=== PATIENT | female | born 1980 | race Caucasian/White ===

== ENCOUNTER 2020-03-21 13:20 | Emergency (ER) | payer OTHER ==
--- NOTE | 2020-03-21 14:04 | RAD REPORT ---
EXAM DESCRIPTION: CT - Ct Stroke Brain Wo Cont - 03/21/2020 1:55 pm CLINICAL HISTORY: Numbness COMPARISON: none TECHNIQUE: Computed axial tomography of the head was obtained. All CT scans are performed using dose optimization technique as appropriate and may include automated exposure control or mA/KV adjustment according to patient size. FINDINGS: An intracranial bleed is not seen . The ventricles are normal in caliber. No extra-axial fluid collection is noted. Fluid within the sinuses/ mastoids is not seen. IMPRESSION: No acute intracranial abnormality is seen. If patient's symptoms persist MRI of the bra in would be recommended. Rafael Page of the emergency room was notified at 1:58 p.m. March 21, 2020
[2020-03-21 14:07] LABS: Basophils % 0.9 % (0-1.3); Hematocrit 36.7 % (36.0-45.0); Lymphocytes % 32.4 % (15.3-44.8); MPV 7.8 fL (7.6-11.3); RBC Red Blood Cell Count 4.12 M/uL (3.86-4.86)
[2020-03-21 14:14] LABS: Protime INR 1.07
[2020-03-21 14:26] LABS: ALT/SGPT 54 U/L (12-78); AST/SGOT 30 U/L (15-37); Albumin 3.1 g/dL (3.4-5.0); Alkaline Phosphatase 119 U/L (45-117); BUN Blood Urea Nitrogen 12 mg/dL (7-18); Bicarbonate 30 mmol/L (21-32); Bilirubin Direct 0.1 mg/dL (0-0.2); Bilirubin Total 0.3 mg/dL (0.2-1.0); Glucose Level 89 mg/dL (74-106); Magnesium 2.1 mg/dL (1.8-2.4); NT PRO-BNP 61 pg/mL (<125); Protein, Total 7.6 g/dL (6.4-8.2); Sodium Level 140 mmol/L (136-145); Troponin (Emerg Dept Use Only) < 0.02 ng/mL (0.0-0.045)
[2020-03-21] MEDS ORDERED: ASPIRIN 81 MG CHEWABLE TABLET ONE (15:45)
[2020-03-21] MEDS ORDERED: FENTANYL CITR 100 MCG/2 ML ONE ×3 (15:46→19:34)
[2020-03-21] MEDS ORDERED: FOLIC ACID 1 MG in NA CHLORIDE 0.9% 50 ML IV ONE (16:00)
[2020-03-21] MEDS ORDERED: LORazepam 2 MG/ML VIAL ONE (17:01)
--- NOTE | 2020-03-21 17:53 | RAD REPORT ---
EXAM DESCRIPTION: MRI - Brain Wo Cont - 03/21/2020 5:38 pm CLINICAL HISTORY: numbness COMPARISON: Head ct 03/21/2020 TECHNIQUE: Axial, sagittal, and coronal magnetic images of the brain were obtained. Contrast was not requested FINDINGS: Small area of abnormal signal deep white matter right fontal lobe may represent an old carlton y small infarct Diffusion-weighted/ADC mapping does not reveal evidence of acute infarction. The ventricles are normal caliber. An extra-axial fluid collection is not present Fluid within the sinuses/mastoids is not noted IMPRESSION: No acute abnormality is displayed
--- NOTE | 2020-03-21 18:37 | ER ---
Nurse's Notes [facility] Name: Lashon Martinez Age: 39 yrs Sex: Female : 1980 Arrival Date: 03/21/2020 Time: 13:21 Bed 4 Private MD: Diagnosis: Moss's palsy-left Presentation: 03/21 13:22 Chief complaint: EMS states: LEFT FACIAL NUMBNESS. Coronavirus screen: Proceed with bp normal triage. Ebola Screen: No symptoms or risks identified at this time. Initial Sepsis Screen: Does the patient meet any 2 criteria? HR > 90 bpm. No. Patient's initial sepsis screen is negative. Does the patient have a suspected source of infection? No. Patient's initial sepsis screen is negative. Risk Assessment: Do you want to hurt yourself or someone else? Patient reports no desire to harm self or others. Onset of symptoms was March 21, 2020 at 12:00. Care prior to arrival: Glucose check: 98. 13:22 Method Of Arrival: EMS: [facility] bp 13:22 Acuity: VINNIE 3 bp Triage Assessment: 13:30 General: Appears in no apparent distress. comfortable, obese, Behavior is cooperative, bp appropriate for age, anxious. Pain: Denies pain. EENT: No deficits noted. Neuro: Reports numbness in LEFT FACE. Cardiovascular: Rhythm is sinus tachycardia. Respiratory: No deficits noted. GI: No signs and/or symptoms were reported involving the gastrointestinal system. : No signs and/or symptoms were reported regarding the genitourinary system. Derm: No deficits noted. Musculoskeletal: No deficits noted. Historical: - Allergies: 13:29 Iodine; bp 13:29 Keflex; bp 13:29 SEAFOOD; bp - Home Meds: 13:29 bupropion HCl 150 mg Oral TbER 1 tab once daily [Active]; fluoxetine 40 mg Oral cap 2 bp caps once daily [Active]; levothyroxine 150 mcg tab 1 tab once daily [Active]; trazodone 150 mg oral tab 1 tab nightly [Active]; Pradaxa 150 mg oral cap 1 cap 2 times per day [Active]; baclofen 20 mg Oral tab 1 tab 4 times per day [Active]; hydromorphone 4 mg Oral tab 1 tab every 6 hours [Active]; - PMHx: 13:29 PARAPLEGIA; Obesity; MOOD D/O; Depression; GERD; bp - Immunization history:: Adult Immunizations up to date. - Social history:: Smoking status: Patient denies any tobacco usage or history of. Screenin:30 Abuse screen: Denies threats or abuse. Denies injuries from another. Nutritional bp screening: No deficits noted. Tuberculosis screening: No symptoms or risk factors identified. Fall Risk None identified. 15:40 Patient has been NPO before screening. The patient is alert, able to follow commands. rb1 The patient does not exhibit slurred or garbled speech The patient is not exhibiting difficulty speaking. The patient does not exhibit difficulty understanding words. The patient is able to swallow own secretions with no drooling or need for suction. Patient tolerated one teaspoon of water. No drooling, immediate coughing, gurgling, or clearing of the throat was noted. The patient tolerated 90mL of water. No drooling, immediate coughing, gurgling, or clearing of the throat was noted. The patient passed the bedside swallow screening. Oral medications may be given as ordered. Contact Physician for further diet orders. Provider notified of bedside swallow screening results: Rafael BURTON. Assessment: 13:30 General: SEE TRIAGE NOTE. bp 14:00 Reassessment: PT RETURNED FROM CT. bp 15:24 Reassessment: MRI PENDING. NO CHANGE IN PT NEURO STATUS. bp 15:46 Reassessment: DR SANCHEZ AT B/S. bp 17:00 Reassessment: PT IN MRI. bp 17:09 Reassessment: Patient is alert, oriented x 3, equal unlabored respirations, skin aa5 warm/dry/pink. Pt c/o pain and anxiety in MRI. Pt given Ativan and Fentanyl at MRI, accompanied by JOSEPHINE Chowdhury. . 17:45 Reassessment: PT RETURNED FROM MRI. bp 19:30 Reassessment: Patient appears in no apparent distress at this time. Patient is alert, rr5 oriented x 3, equal unlabored respirations, skin warm/dry/pink. complaining of left side of the face pain, pain score 10/10. ED provider aware with order made and carried out. awaiting for EMS [facility] for the transport. 20:05 Reassessment: Patient appears in no apparent distress at this time. Patient is alert, rr5 oriented x 3, equal unlabored respirations, skin warm/dry/pink. endorsed to [facility] EMS awake alert not in distress. GCS 15/15. vitally stable. Vital Signs: 13:22 BP 140 / 80; Pulse 100; Resp 20; Temp 98; Pulse Ox 99% ; bp 14:00 BP 144 / 89; Pulse 104; Resp 23; Pulse Ox 99% ; bp 15:22 BP 138 / 90; Pulse 105; Resp 17; Pulse Ox 100% ; bp 16:30 BP 135 / 76; Pulse 105; Resp 15; Pulse Ox 97% ; bp 17:46 BP 140 / 96; Pulse 100; Resp 17; Pulse Ox 100% ; bp 19:30 BP 136 / 75; Pulse 85; Resp 19; Pulse Ox 99% ; Pain 10/10; rr5 20:05 BP 126 / 85; Pulse 92; Resp 17; Pulse Ox 98% ; rr5 NIH Stroke Scale Scores: 13:45 NIHSS Score: 3 cp ED Course: 13:21 Patient arrived in ED. bp 13:23 Triage completed. bp 13:29 Arm band placed on. bp 13:30 Patient has correct armband on for positive identification. Bed in low position. Call bp light in reach. Side rails up X2. Adult w/ patient. 13:38 Rafael Zepeda PA is PHCP. cp 13:38 Benton Mortensen MD is Attending Physician. cp 13:42 Fabrizio Nath, KIKE is Primary Nurse. bp 13:55 CT Stroke Brain w/o Contrast In Process Unspecified. EDMS 14:40 EKG done, by proof technician. reviewed by Rafael BURTON. at1 15:33 Inserted saline lock: 20 gauge in left antecubital area, using aseptic technique. em1 17:38 MRI - Brain Wo Cont In Process Unspecified. EDMS 18:35 John Moncada MD is Referral Physician. cp 20:11 No provider procedures requiring assistance completed. IV discontinued, intact, rr5 bleeding controlled, No redness/swelling at site. Pressure dressing applied. Administered Medications: 15:10 Drug: foLIC Acid 1 mg Route: IVPB; Site: left antecubital; bp 15:43 Drug: Aspirin 81 mg Route: PO; rb1 16:09 Follow up: Response: No adverse reaction bp 15:43 Drug: fentaNYL (PF) 25 mcg Route: IVP; Site: left antecubital; rb1 16:10 Follow up: Response: Pain is decreased bp 16:22 Follow up: Response: No adverse reaction; Pain is decreased rb1 17:09 Drug: Ativan 0.5 mg Route: IVP; Site: left antecubital; aa5 17:09 Drug: fentaNYL (PF) 25 mcg Route: IVP; Site: left antecubital; aa5 19:51 Drug: fentaNYL (PF) 25 mcg {Note: rass 0..} Route: IVP; Site: left antecubital; rr5 20:05 Follow up: Response: No adverse reaction; RASS: Alert and Calm (0) rr5 Outcome: 18:36 Discharge ordered by MD. cp 20:05 [facility] 20:05 Condition: stable rr5 20:05 Discharge instructions given to patient, Instructed on discharge instructions, follow up and referral plans. medication usage, Demonstrated understanding of instructions, follow-up care, medications, Prescriptions given X 3. 20:08 Patient left the ED. rr5 NIH Stroke Scale - NIH Stroke Score Date: 03/21/2020 Time: 13:45 Total Score = 3 1a. Level of Consciousness (LOC) - 0(Alert) 1b. Level of Consciousness (LOC) (Year \T\ Age) - 0(Both) 1c. LOC Commands (Open \T\ Closes Eyes/Electric Stove Installer) - 0(Both) 2. Best Gaze (Lateral Gaze Paresis) - 0(Normal) 3. Visual Field Loss - 0(No visual loss) 4. Facial Palsy - 2(Partial paralysis) 5a. Left Arm: Motor (10-second hold) - 0(No drift) 5b. Right Arm: Motor (10-second hold) - 0(No drift) 6a. Left Leg: Motor (5-second hold - always test supine) - 0(No drift) 6b. Right Leg: Motor (5-second hold - always test supine) - 0(No drift) 7. Limb Ataxia (finger/nose \T\ heel/mejia - test with eyes open) - 0(Absent) 8. Sensory Loss (pinprick arms/legs/face) - 1(Mild to moderate loss) 9. Best Language: Aphasia (description/naming/reading) - 0(No aphasia) 10. Dysarthria (speech clarity - read or repeat words) - 0(Normal) 11. Extinction and Inattention (visual/tactile/auditory/spatial/personal) - 0(No abnormality) Initials: cp Signatures: Dispatcher [employer] Terry Randolph em1 Sylvia Tejada, RN RN aa5 Yesika Elam, speeder worker EKG Tat1 Rafael Zepeda PA PA cp Barber, Rebecca, RN RN rb1 Farbizio Nath RN RN bp Porfirio Perry RN RN rr5
--- NOTE | 2020-03-21 18:37 | EDPHYS ---
Physician Documentation [facility] Name: Lashon Martinez Age: 39 yrs Sex: Female : 1980 Arrival Date: 03/21/2020 Time: 13:21 Bed 4 Private MD: ED Physician Benton Mortensen HPI: 03/21 13:45 This 39 yrs old Female presents to ER via EMS with complaints of Numbness Of cp Face. 13:45 The patient's problem is reported as a facial droop, on left, paresthesias, in left cp side of face. 13:45 Onset: The symptoms/episode began/occurred this morning, Patient reports noticing cp numbness to left side of face upon awakening at approximately 0700. Duration: The episode is continuous. Context: symptoms became apparent upon waking. Associated signs and symptoms: Pertinent negatives: abdominal pain, blurred vision, chest pain, confusion, headache, palpitations, seizure, weakness. Severity of symptoms: in the emergency department the symptoms are unchanged. Patient's baseline: Neuro: alert and fully oriented, Motor: lower extremity paraplegic, Ambulation: unable to walk, Speech: normal. Historical: - Allergies: 13:29 Iodine; bp 13:29 Keflex; bp 13:29 SEAFOOD; bp - Home Meds: 13:29 bupropion HCl 150 mg Oral TbER 1 tab once daily [Active]; fluoxetine 40 mg Oral cap 2 bp caps once daily [Active]; levothyroxine 150 mcg tab 1 tab once daily [Active]; trazodone 150 mg oral tab 1 tab nightly [Active]; Pradaxa 150 mg oral cap 1 cap 2 times per day [Active]; baclofen 20 mg Oral tab 1 tab 4 times per day [Active]; hydromorphone 4 mg Oral tab 1 tab every 6 hours [Active]; - PMHx: 13:29 PARAPLEGIA; Obesity; MOOD D/O; Depression; GERD; bp - Immunization history:: Adult Immunizations up to date. - Social history:: Smoking status: Patient denies any tobacco usage or history of. ROS: 13:50 Constitutional: Negative for body aches, chills, fever, poor PO intake. cp 13:50 Eyes: Negative for injury, pain, redness, and discharge. cp 13:50 ENT: Negative for ear pain, sore throat, difficulty swallowing, difficulty handling cp secretions. 13:50 Cardiovascular: Negative for chest pain, palpitations. 13:50 Respiratory: Negative for cough, shortness of breath, wheezing. 13:50 Abdomen/GI: Negative for abdominal pain, nausea, vomiting, and diarrhea. 13:50 Skin: Negative for rash. 13:50 Neuro: Positive for left side facial droop and numbness, Negative for altered mental status, dizziness, headache. 13:50 All other systems are negative. Exam: 13:48 Constitutional: The patient appears in no acute distress, alert, awake, cp non-diaphoretic, non-toxic, well developed, well nourished, obese. 13:48 Head/face: Noted is left side facial droop. cp 13:48 Eyes: Periorbital structures: appear normal, Pupils: equal, round, and reactive to light and accomodation, Extraocular movements: intact throughout, Conjunctiva: normal, no exudate, no injection, Sclera: no appreciated abnormality, Lids and lashes: appear normal, bilaterally. 13:48 ENT: External ear(s): are unremarkable, Nose: is normal, Mouth: Lips: moist, Oral mucosa: pink and intact, moist, Posterior pharynx: is normal, airway is patent, no erythema, no exudate. 13:48 Neck: ROM/movement: is normal, is supple, without pain, no range of motions limitations, no nuchal rigidity. 13:48 Chest/axilla: Inspection: normal. 13:48 Cardiovascular: Rate: normal, Rhythm: regular. 13:48 Respiratory: the patient does not display signs of respiratory distress, Respirations: normal, no use of accessory muscles, no retractions, labored breathing, is not present, Breath sounds: are clear throughout, no decreased breath sounds. 13:48 Abdomen/GI: Exam negative for discomfort, distension, guarding, Inspection: abdomen appears normal. 13:48 Skin: no rash present. 13:48 Neuro: Orientation: to person, place \T\ time. Mentation: is normal, Cerebellar function: Romberg testing is negative, normal finger to nose testing, Motor: no acute changes, strength is 5/5 in the right arm and left arm, patient is lower extremity paraplegic, Sensation: numbness, of the left lateral face. 14:00 Radiologist reports: no acute findings 14:40 ECG was reviewed by the Attending Physician. Vital Signs: 13:22 BP 140 / 80; Pulse 100; Resp 20; Temp 98; Pulse Ox 99% ; bp 14:00 BP 144 / 89; Pulse 104; Resp 23; Pulse Ox 99% ; bp 15:22 BP 138 / 90; Pulse 105; Resp 17; Pulse Ox 100% ; bp 16:30 BP 135 / 76; Pulse 105; Resp 15; Pulse Ox 97% ; bp 17:46 BP 140 / 96; Pulse 100; Resp 17; Pulse Ox 100% ; bp 19:30 BP 136 / 75; Pulse 85; Resp 19; Pulse Ox 99% ; Pain 10/10; rr5 20:05 BP 126 / 85; Pulse 92; Resp 17; Pulse Ox 98% ; rr5 NIH Stroke Scale Scores: 13:45 NIHSS Score: 3 cp MDM: 13:41 ED course: Patient reports noticing numbness of left side of face upon awakening today cp at 0700. 13:48 Patient medically screened. 14:00 Differential diagnosis: CVA, TIA, metabolic disorder, drug effects, moss's palsy. 14:55 Physician consultation: John Moncada MD was called at 14:45, was contacted at 14:45, regarding consult, patient's condition, would like further tests performed, MRI. 15:00 Physician consultation: Angel ANTOINE was contacted at 15:00, regarding admission, cp to the telemetry unit. would like further tests performed, results of MRI, if negative for acute CVA will discharge with outpatient neuro f/u. 18:30 Data reviewed: vital signs, nurses notes, lab test result(s), EKG, radiologic studies, cp CT scan, MRI. 18:30 Test interpretation: by ED physician or midlevel provider: ECG. Response to treatment: the patient's symptoms have mildly improved after treatment. 03/21 13:40 Order name: Basic Metabolic Panel; Complete Time: 14:43 03/21 18:15 Interpretation: CA 8.4; Reviewed. 03/21 13:40 Order name: CBC with Diff; Complete Time: 14:12 03/21 18:14 Interpretation: WBC 15.4; PLT 511; RDW 17.2; NEUT A 8.9; LYMA 5.0; Reviewed. 03/21 13:40 Order name: LFT's; Complete Time: 14:43 cp /18 14:43 Interpretation: Normal except: ALK 119; ALB 3.1; GLOB 4.5; A/G 0.7. cp 06/18 13:40 Order name: Magnesium; Complete Time: 14:43 cp /18 13:40 Order name: NT PRO-BNP; Complete Time: 14:43 cp /18 13:40 Order name: PT-INR; Complete Time: 14:43 cp /18 18:15 Interpretation: Normal except: PT 12.6. cp 06/18 13:40 Order name: CT Stroke Brain w/o Contrast; Complete Time: 14:12 cp / 13:40 Order name: Troponin (emerg Dept Use Only); Complete Time: 14:43 cp /18 18:16 Interpretation: TROPED < 0.02; Reviewed. / 16:06 Order name: MRI - Brain Wo Cont; Complete Time: 18:10 03/21 13:40 Order name: EKG; Complete Time: 13:41 cp 03/21 13:40 Order name: Cardiac monitoring; Complete Time: 14:00 cp /18 13:40 Order name: EKG - Nurse/Tech; Complete Time: 14:00 03/21 13:40 Order name: IV Saline Lock; Complete Time: 15:33 cp /18 13:40 Order name: Labs collected and sent; Complete Time: 14:00 /18 13:40 Order name: O2 Per Protocol; Complete Time: 14:00 / 13:40 Order name: O2 Sat Monitoring; Complete Time: 14:00 /18 14:46 Order name: Swallow Screen; Complete Time: 15:45 cp EC:40 Rate is 99 beats/min. Rhythm is regular. GA interval is normal. QRS interval is normal. cp QT interval is normal. T waves are Flattened in lead aVL. Interpreted by me. Reviewed by me. Administered Medications: 15:10 Drug: foLIC Acid 1 mg Route: IVPB; Site: left antecubital; bp 15:43 Drug: Aspirin 81 mg Route: PO; rb1 16:09 Follow up: Response: No adverse reaction bp 15:43 Drug: fentaNYL (PF) 25 mcg Route: IVP; Site: left antecubital; rb1 16:10 Follow up: Response: Pain is decreased bp 16:22 Follow up: Response: No adverse reaction; Pain is decreased rb1 17:09 Drug: Ativan 0.5 mg Route: IVP; Site: left antecubital; aa5 17:09 Drug: fentaNYL (PF) 25 mcg Route: IVP; Site: left antecubital; aa5 19:51 Drug: fentaNYL (PF) 25 mcg {Note: rass 0..} Route: IVP; Site: left antecubital; rr5 20:05 Follow up: Response: No adverse reaction; RASS: Alert and Calm (0) rr5 Disposition: 18:45 Chart complete. cp 03/22 14:53 Co-signature as Attending Physician, Benton Mortensen MD I agree with the assessment and kdr plan of care. Disposition: 03/21/20 18:36 Discharged to Home. Impression: Moss's palsy - left. - Condition is Stable. - Discharge Instructions: Moss Palsy, Adult, Aspirin and Your Heart. - Prescriptions for Prednisone 20 mg Oral Tablet - take 2 tablet by ORAL route once daily for 5 days; 10 tablet. Valtrex 1 g Oral Tablet - take 1 tablet by ORAL route every 8 hours for 7 days; 21 tablet. lacrilube - apply 0.5 inch by OPHTHALMIC route 3-4 times daily As needed; 7 gram. - Medication Reconciliation Form, Thank You Letter, Antibiotic Education, Prescription Opioid Use, SBAR form form. - Follow up: John Moncada MD; When: 2 - 3 days; Reason: Recheck today's complaints. - Problem is new. - Symptoms are unchanged. NIH Stroke Scale - NIH Stroke Score Date: 03/21/2020 Time: 13:45 Total Score = 3 1a. Level of Consciousness (LOC) - 0(Alert) 1b. Level of Consciousness (LOC) (Year \T\ Age) - 0(Both) 1c. LOC Commands (Open \T\ Closes Eyes/Materials Buyer) - 0(Both) 2. Best Gaze (Lateral Gaze Paresis) - 0(Normal) 3. Visual Field Loss - 0(No visual loss) 4. Facial Palsy - 2(Partial paralysis) 5a. Left Arm: Motor (10-second hold) - 0(No drift) 5b. Right Arm: Motor (10-second hold) - 0(No drift) 6a. Left Leg: Motor (5-second hold - always test supine) - 0(No drift) 6b. Right Leg: Motor (5-second hold - always test supine) - 0(No drift) 7. Limb Ataxia (finger/nose \T\ heel/mejia - test with eyes open) - 0(Absent) 8. Sensory Loss (pinprick arms/legs/face) - 1(Mild to moderate loss) 9. Best Language: Aphasia (description/naming/reading) - 0(No aphasia) 10. Dysarthria (speech clarity - read or repeat words) - 0(Normal) 11. Extinction and Inattention (visual/tactile/auditory/spatial/personal) - 0(No abnormality) Initials: cp Signatures: Dispatcher [employer] EDMS Benton Mortensen MD MD kdr Sylvia Tejada RN RN aa5 Rafael Zepeda PA PA cp Rebecca Denise RN RN rb1 Fabrizio Nath RN RN bp Porfirio Perry RN RN rr5 Corrections: (The following items were deleted from the chart) 03/21 18:14 14:12 Reviewed. cp cp 18:15 18:14 Reviewed. cp cp 20:08 18:36 03/21/2020 18:36 Discharged to Home. Impression: Moss's palsy - left. rr5 Condition is Stable. Forms are Medication Reconciliation Form, Thank You Letter, Antibiotic Education, Prescription Opioid Use. Follow up: John Moncada; When: 2 - 3 days; Reason: Recheck today's complaints. Problem is new. Symptoms are unchanged. cp
[2020-03-21 20:13] VITALS: TEMP 98
[2020-03-21 20:18] VITALS: BP 140/96; O2SAT 100
--- NOTE | 2020-03-22 06:39 | EKG ---
Test Date: 2020-03-21 Test Time: 14:31:04 Accounting Lecturer: MOMO MEASUREMENT RESULTS: Intervals: Rate: 99 DE: 142 QRSD: 100 QT: 378 QTc: 485 [place]: P: 48 DE: 142 QRS: 33 T: 50 INTERPRETIVE STATEMENTS: Normal sinus rhythm Incomplete right bundle branch block Prolonged QT Abnormal ECG Compared to ECG 01/30/2015 23:04:21 Incomplete right bundle-branch block now present Prolonged QT interval now present Electronically Signed On 03-22-20 06:37:38 CDT by Eren Leblanc
== END 2020-03-21 20:08 | disposition home or self-care (01) ==
LOC: ER 13:20
DX: G51.0 Bell's palsy (principal); F32.9 Major depressive disorder, single episode, unspecified; Z88.1 Allergy status to other antibiotic agents; Z91.013 Allergy to seafood
CPT/HCPCS: 93005; 85025; 80048; 36415; 83735; 85610; 80076; 84484; 83880; 70450; 70551; 96375; 96374; 99284; J3010 ×3

== ENCOUNTER 2020-12-23 11:34 | Inpatient (IN) | payer OTHER ==
[2020-12-23 12:53] LABS: Absolute Lymphocytes (CBC) 5.2 K/uL (0.7-4.9); Basophils % 0.9 % (0-1.3); Hematocrit 23.1 % (36.0-45.0); Lymphocytes % 33.1 % (15.3-44.8); MPV 7.5 fL (7.6-11.3); RBC Red Blood Cell Count 2.95 M/uL (3.86-4.86)
[2020-12-23 13:13] LABS: Protime INR 1.32
[2020-12-23 13:27] LABS: ALT/SGPT 23 U/L (12-78); AST/SGOT 11 U/L (15-37); Albumin 3.1 g/dL (3.4-5.0); Alkaline Phosphatase 86 U/L (45-117); BUN Blood Urea Nitrogen 14 mg/dL (7-18); Bicarbonate 28 mmol/L (21-32); Bilirubin Direct < 0.1 mg/dL (0-0.2); Bilirubin Total 0.2 mg/dL (0.2-1.0); Glucose Level 96 mg/dL (74-106); Lipase 38 U/L (73-393); Potassium 4.3 mmol/L (3.5-5.1); Protein, Total 7.4 g/dL (6.4-8.2); Sodium Level 142 mmol/L (136-145)
--- NOTE | 2020-12-23 13:27 | ER ---
Nurse's Notes [facility] Name: Lashon Martinez Age: 40 yrs Sex: Female : 1980 Arrival Date: 12/23/2020 Time: 11:37 Bed 16 Private MD: Diagnosis: Anemia, unspecified;Gatrointestinal bleed Presentation: 12/23 11:41 Chief complaint: EMS states: Toned out for abnormal lab results, low hgb and hct. jl7 Coronavirus screen: Client denies travel out of the [place] in the last 14 days. At this time, the client does not indicate any symptoms associated with coronavirus-19. Ebola Screen: No symptoms or risks identified at this time. Initial Sepsis Screen: Does the patient meet any 2 criteria? No. Patient's initial sepsis screen is negative. Does the patient have a suspected source of infection? No. Patient's initial sepsis screen is negative. Risk Assessment: Do you want to hurt yourself or someone else? Patient reports no desire to harm self or others. Onset of symptoms is unknown. Care prior to arrival: None. Transition of care: patient was received from another setting of care (long-term care facility), [facility]. 11:41 Method Of Arrival: EMS: [facility] jl7 11:41 Acuity: VINNIE 3 jl7 Triage Assessment: 11:51 General: Appears in no apparent distress. Behavior is calm, cooperative, appropriate jl7 for age. Pain: Denies pain. Neuro: Level of Consciousness is awake, alert, obeys commands, Oriented to person, place, time, situation. Cardiovascular: Patient's skin is warm and dry. Respiratory: Airway is patent Respiratory effort is even, unlabored, Respiratory pattern is regular, symmetrical. GI: Reports dark stool. Derm: Skin is pink, warm \T\ dry. DIRECTOR OF ENTERPRISE APPLICATIONS: 11:51 LMP N/A - control method jl7 Historical: - Allergies: 11:51 Iodine; jl7 11:51 Keflex; jl7 11:51 SEAFOOD; jl7 - Home Meds: 11:51 trazodone 150 mg Oral tab 1 tab nightly [Active]; levothyroxine 150 mcg tab 1 tab once jl7 daily [Active]; baclofen 20 mg Oral tab 1 tab 4 times per day [Active]; bupropion HCl 150 mg Oral TbER 1 tab once daily [Active]; hydromorphone 4 mg Oral tab 1 tab every 6 hours [Active]; Eliquis 5 mg oral tab 1 tab 2 times per day [Active]; fluoxetine 40 mg Oral cap 2 caps once daily [Active]; Pradaxa 150 mg Oral cap 1 cap 2 times per day [Active]; - PMHx: 11:51 Depression; GERD; MOOD D/O; Obesity; Paraplegia; jl7 - Immunization history:: Adult Immunizations up to date. - Social history:: Smoking status: unknown. - Family history:: not pertinent. - Hospitalizations: : No recent hospitalization is reported. Screenin:14 Abuse screen: Denies threats or abuse. Denies injuries from another. Nutritional jl screening: No deficits noted. Tuberculosis screening: No symptoms or risk factors identified. Fall Risk IV access (20 points). Assessment: 12:14 General: see triage assessment. jl7 13:00 Reassessment: Patient appears in no apparent distress at this time. No changes from jl7 previously documented assessment. Patient and/or family updated on plan of care and expected duration. Pain level reassessed. Patient is alert, oriented x 3, equal unlabored respirations, skin warm/dry/pink. 14:35 Reassessment: Hospitalist Dr. Bryant at bedside assessing pt and discussing POC. jl7 15:00 Reassessment: Patient appears in no apparent distress at this time. No changes from jl7 previously documented assessment. Patient and/or family updated on plan of care and expected duration. Pain level reassessed. Patient is alert, oriented x 3, equal unlabored respirations, skin warm/dry/pink. 16:00 Reassessment: Patient appears in no apparent distress at this time. No changes from jl7 previously documented assessment. Patient and/or family updated on plan of care and expected duration. Pain level reassessed. Patient is alert, oriented x 3, equal unlabored respirations, skin warm/dry/pink. 17:00 Reassessment: Patient appears in no apparent distress at this time. No changes from jl7 previously documented assessment. Patient and/or family updated on plan of care and expected duration. Pain level reassessed. Patient is alert, oriented x 3, equal unlabored respirations, skin warm/dry/pink. 17:30 Reassessment: Attempted to call report, nurse unavailable. jl7 18:01 Reassessment: Attempted to call report, nurse unavailable. jl7 Vital Signs: 11:41 BP 134 / 77; Pulse 103; Resp 15 S; Temp 98.6(O); Pulse Ox 98% on R/A; Pain 0/10; jl7 12:42 BP 140 / 80; Pulse 103; Resp 17; Pulse Ox 98% ; jl7 14:35 BP 160 / 87; Pulse 98; Resp 17; Pulse Ox 99% ; jl7 16:00 BP 130 / 91; Pulse 98; Resp 17; Pulse Ox 100% ; jl7 17:00 BP 148 / 99; Pulse 99; Resp 15; Pulse Ox 100% ; jl7 18:00 BP 131 / 95; Pulse 102; Resp 17; Pulse Ox 100% ; jl7 ED Course: 11:37 Patient arrived in ED. iw 11:38 Torsten Bryant MD is Attending Physician. rn 11:41 Juanjose Babb RN is Primary Nurse. jl7 11:47 Triage completed. jl7 11:51 Arm band placed on right wrist. 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 jl7 12:14 Patient has correct armband on for positive identification. Placed in gown. Bed in low jl7 position. Call light in reach. Side rails up X2. Pulse ox on. NIBP on. 12:52 Initial lab(s) drawn, by ma, sent to lab. Inserted saline lock: 20 gauge in left sr5 antecubital area, using aseptic technique. Blood collected. Missed attempt(s): 20 gauge in left forearm. 13:26 Porfirio Bryant MD is Hospitalizing Provider. rn 14:21 CT Abd/Pelvis - Without Contrast In Process Unspecified. EDMS 14:45 Missed attempt(s): 20 gauge in right forearm. Bleeding controlled, band aid applied, jl7 catheter tip intact. 15:00 Inserted saline lock: 22 gauge in right upper arm, using aseptic technique. Blood jl7 collected. 16:44 Inserted saline lock: 22 gauge in left forearm, using aseptic technique. jl7 18:00 Patient admitted, IV remains in place. intact, No redness/swelling at site. jl7 Administered Medications: 13:15 Drug: ProTONIX 40 mg Route: IVP; Site: left antecubital; jl7 15:08 Follow up: Response: No adverse reaction jl7 14:25 Drug: Phenergan 12.5 mg Route: IVP; Site: left antecubital; jl7 15:00 Follow up: Response: No adverse reaction; Nausea is decreased jl7 14:30 Drug: morphine 4 mg Route: IVP; Site: left antecubital; jl7 15:00 Follow up: Response: No adverse reaction; Pain is decreased jl7 15:00 Drug: ProTONIX 8 mg/hr Route: IV; Rate: 25 ml/hr; Site: left antecubital; jl7 15:09 Follow up: Response: No adverse reaction; IV Status: Infusion continued upon admission jl7 16:44 Follow up: location moved to left FA due to pt unable to keep arm straight jl7 Point of Care Testing: Guaiac: 11:54 Stool Guaiac: Positive; Stool Hemoccult Control: Pass; broomcorn seeder: Outcome: 13:27 Decision to Hospitalize by Provider. rn 18:30 Admitted to Tele accompanied by tech, via stretcher, room 220, with chart, Report nathaniel called to KIKE Simmons 18:30 Condition: stable 18:30 Discharge instructions given to patient, Instructed on the need for admit, Demonstrated understanding of instructions. 18:31 Patient left the ED. jl7 Signatures: Dispatcher [employer] Rosy Flores RN RN iw Nieto, Roman, MD MD rn Resecker, Sam, RN RN sr5 Juanjose Babb RN RN jl7
--- NOTE | 2020-12-23 13:27 | EDPHYS ---
Physician Documentation [facility] Name: Lashon Martinez Age: 40 yrs Sex: Female : 1980 Arrival Date: 12/23/2020 Time: 11:37 Bed 16 Private MD: ED Physician Torsten Bryant HPI: 12/23 11:39 This 40 yrs old Female presents to ER via Unassigned with complaints of needs rn repeat bloodwork. 11:39 Reports had regularly scheduled blood draw this week, showed low hemoglobin, has never rn had a problem with anemia or GI bleeding, halfway unable to successfully get repeat blooddraw, sent her here for re-draw. Pt denies any new symptoms, no sob/fatigue/chest pain. Does take blood thinners for chronic DVT. . Onset: The symptoms/episode began/occurred at an unknown time. Severity of symptoms: At their worst the symptoms were mild in the emergency department the symptoms are unchanged. The patient has not experienced similar symptoms in the past. The patient has been recently seen by a physician:. SLIP DUMPER: 11:51 LMP N/A - control method jl Historical: - Allergies: 11:51 Iodine; jl 11:51 Keflex; 11:51 SEAFOOD; jl7 - Home Meds: 11:51 trazodone 150 mg Oral tab 1 tab nightly [Active]; levothyroxine 150 mcg tab 1 tab once jl7 daily [Active]; baclofen 20 mg Oral tab 1 tab 4 times per day [Active]; bupropion HCl 150 mg Oral TbER 1 tab once daily [Active]; hydromorphone 4 mg Oral tab 1 tab every 6 hours [Active]; Eliquis 5 mg oral tab 1 tab 2 times per day [Active]; fluoxetine 40 mg Oral cap 2 caps once daily [Active]; Pradaxa 150 mg Oral cap 1 cap 2 times per day [Active]; - PMHx: 11:51 Depression; GERD; MOOD D/O; Obesity; Paraplegia; jl7 - Immunization history:: Adult Immunizations up to date. - Social history:: Smoking status: unknown. - Family history:: not pertinent. - Hospitalizations: : No recent hospitalization is reported. ROS: 11:39 Constitutional: Negative for fever, chills, and weight loss, Eyes: Negative for injury, rn pain, redness, and discharge, Neck: Negative for injury, pain, and swelling, Cardiovascular: Negative for chest pain, palpitations, and edema, Respiratory: Negative for shortness of breath, cough, wheezing, and pleuritic chest pain, Abdomen/GI: Negative for abdominal pain, nausea, vomiting, diarrhea, and constipation, Back: Negative for injury and pain, : Negative for injury, bleeding, discharge, and swelling, MS/Extremity: Negative for injury and deformity, Skin: Negative for injury, rash, and discoloration, Neuro: Negative for headache, numbness, tingling, and seizure. Exam: 11:39 Constitutional: This is a well developed, well nourished patient who is awake, alert, rn and in no acute distress. Head/Face: Normocephalic, atraumatic. Eyes: Periorbital areas with no swelling, redness, or edema. ENT: MMM Cardiovascular: Regular rate and rhythm. No pulse deficits. Respiratory: No increased work of breathing, no retractions or nasal flaring. Abdomen/GI: soft, non-tender Skin: Warm, dry MS/ Extremity: Pulses equal, no cyanosis. Neuro: Awake and alert, GCS 15, oriented to person, place, time, and situation. + bilateral lower ext paralysis. Vital Signs: 11:41 BP 134 / 77; Pulse 103; Resp 15 S; Temp 98.6(O); Pulse Ox 98% on R/A; Pain 0/10; jl7 12:42 BP 140 / 80; Pulse 103; Resp 17; Pulse Ox 98% ; jl7 14:35 BP 160 / 87; Pulse 98; Resp 17; Pulse Ox 99% ; jl7 16:00 BP 130 / 91; Pulse 98; Resp 17; Pulse Ox 100% ; jl7 17:00 BP 148 / 99; Pulse 99; Resp 15; Pulse Ox 100% ; jl7 18:00 BP 131 / 95; Pulse 102; Resp 17; Pulse Ox 100% ; jl7 MDM: 11:39 Patient medically screened. rn 13:09 Differential Diagnosis anemia, gastric ulcer, GI bleed. . rn 13:10 Data reviewed: vital signs, nurses notes, lab test result(s), and as a result, I will architect internship patient. Counseling: I had a detailed discussion with the patient and/or guardian regarding: the historical points, exam findings, and any diagnostic results supporting the discharge/admit diagnosis, lab results, the need for further work-up and treatment in the hospital. Admission orders: after a detailed discussion of the patient's condition and case, the admit orders are written by me. ED course: Pt with hemoglobin 6.9, hemoccult +, will admit to Dr. Bryant for further care, started on protonix drip.. 12/23 11:39 Order name: CBC with Diff; Complete Time: 13:08 rn 12/23 11:53 Order name: Basic Metabolic Panel; Complete Time: 14:44 rn 12/23 11:53 Order name: Protime (+inr); Complete Time: 14:44 rn 12/23 11:53 Order name: Ptt, Activated; Complete Time: 14:44 rn 12/23 11:53 Order name: LFT's; Complete Time: 14:44 rn 12/23 11:53 Order name: Lipase; Complete Time: 14:44 rn 12/23 11:53 Order name: Type And Screen 12/23 11:53 Order name: Lactate; Complete Time: 13:08 rn 12/23 13:12 Order name: TRANSFERRIN SAT/IRON BINDING; Complete Time: 16:09 12/23 13:12 Order name: Iron Level; Complete Time: 16:09 12/23 13:12 Order name: B12; Complete Time: 16:09 12/23 13:34 Order name: Bb Add On bd 12/23 13:36 Order name: Packed RBC Leukored [facility] 12/23 11:53 Order name: IV Start; Complete Time: 12:33 rn 12/23 13:10 Order name: CT Abd/Pelvis - Without Contrast; Complete Time: 14:44 12/23 14:46 Order name: CONS Physician Consult [facility] 12/23 14:50 Order name: C-Reactive Protein; Complete Time: 16:09 [facility]OH 12/23 14:50 Order name: Procalcitonin; Complete Time: 16:09 [facility]OH 12/23 15:40 Order name: SARS-COV-2 RT PCR; Complete Time: 16:09 EDOH Administered Medications: 13:15 Drug: ProTONIX 40 mg Route: IVP; Site: left antecubital; jl7 15:08 Follow up: Response: No adverse reaction jl7 14:25 Drug: Phenergan 12.5 mg Route: IVP; Site: left antecubital; jl7 15:00 Follow up: Response: No adverse reaction; Nausea is decreased jl7 14:30 Drug: morphine 4 mg Route: IVP; Site: left antecubital; jl7 15:00 Follow up: Response: No adverse reaction; Pain is decreased jl7 15:00 Drug: ProTONIX 8 mg/hr Route: IV; Rate: 25 ml/hr; Site: left antecubital; jl7 15:09 Follow up: Response: No adverse reaction; IV Status: Infusion continued upon admission jl7 16:44 Follow up: location moved to left FA due to pt unable to keep arm straight jl7 Point of Care Testing: Guaiac: 11:54 Stool Guaiac: Positive; Stool Hemoccult Control: Pass; rn Disposition: 12/23/20 13:27 Hospitalization ordered by Porfirio Bryant for Inpatient Admission. Preliminary diagnosis are Anemia, unspecified, Gatrointestinal bleed. - Bed requested for Telemetry/MedSurg (Inpatient). - Status is Inpatient Admission. jl7 - Condition is Stable. - Problem is new. - Symptoms are unchanged. Signatures: Dispatcher [employer] EDMS Shari Jade Roman, MD MD rn Smirch, Shelby, RN RN ss Leal, Jahala, RN RN jl7 Corrections: (The following items were deleted from the chart) 11:42 11:39 Constitutional: Negative for fever, chills, and weight loss, Eyes: Negative for rn injury, pain, redness, and discharge, Neck: Negative for injury, pain, and swelling, Cardiovascular: Negative for chest pain, palpitations, and edema, Respiratory: Negative for shortness of breath, cough, wheezing, and pleuritic chest pain, Abdomen/GI: Negative for abdominal pain, nausea, vomiting, diarrhea, and constipation, Back: Negative for injury and pain, : Negative for injury, bleeding, discharge, and swelling, MS/Extremity: Negative for injury and deformity, Skin: Negative for injury, rash, and discoloration, Neuro: Negative for headache, weakness, numbness, tingling, and seizure, rn 13:12 13:12 FERRITIN+C.LAB.BRZ ordered. EDMS EDMS 14:52 14:07 CORONAVIRUS+MR.LAB.BRZ ordered. EDMS EDMS 16:52 13:27 Hospitalization Ordered by Porfirio Bryant MD for Inpatient Admission. Preliminary ss diagnosis is Anemia, unspecified; Gatrointestinal bleed. Bed requested for Telemetry/MedSurg (Inpatient). Status is Inpatient Admission. Condition is Stable. Problem is new. Symptoms are unchanged. rn 17:02 16:52 12/23/2020 13:27 Hospitalization Ordered by Porfirio Bryant MD for Inpatient bd Admission. Preliminary diagnosis is Anemia, unspecified; Gatrointestinal bleed. Bed requested for [facility] ER HOLD. Status is Inpatient Admission. Condition is Stable. Problem is new. Symptoms are unchanged. ss 18:31 17:02 12/23/2020 13:27 Hospitalization Ordered by Porfirio Bryant MD for Inpatient jl7 Admission. Preliminary diagnosis is Anemia, unspecified; Gatrointestinal bleed. Bed requested for Telemetry/MedSurg (Inpatient). Status is Inpatient Admission. Condition is Stable. Problem is new. Symptoms are unchanged. bd
[2020-12-23] MEDS ORDERED: PANTOPRAZOLE 40 MG INJ ONE (13:28)
[2020-12-23] MEDS ORDERED: PANTOPRAZOLE INJ 80 MG in NA CHLORIDE 0.9% 250 ML IV ONE (13:30)
[2020-12-23] MEDS ORDERED: PROMETHAZINE INJ 25 MG/ML AMP ONE (14:24)
[2020-12-23] MEDS ORDERED: MORPHINE 4 MG/ML SYR ONE (14:26)
--- NOTE | 2020-12-23 14:43 | RAD REPORT ---
EXAM DESCRIPTION: CT - Abdomen Pelvis Wo Contrast - 12/23/2020 2:21 pm CLINICAL HISTORY: Abdominal pain /GI bleed COMPARISON: 2014 TECHNIQUE: Computed axial tomography of the abdomen and pelvis was obtained. IV and oral contrast we re not requested. All CT scans are performed using dose optimization technique as appropriate and may include automated exposure control or mA/KV adjustment according to patient size. FINDINGS: The evaluation of solid organs, vessels and bowel is limited secondary to the lack of con trast administration. 2 millimeter calculus left kidney. No hydronephrosis. Renal cortical thinning probably related to elsa or inflammation Cholecystectomy. Liver, pancreas, adrenals and right kidney grossly normal. 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 Chronic subluxation lower thoracic/upper lumbar spine. Postsurgical changes. Increased density within the lumbar/sacral spinal canal unchanged and may represent old contrast within the thecal sac. Small umbilical hernia contains. Moderate amount of stool throughout the colon IMPRESSION: Moderate amount stool throughout the colon. 2 millimeter nonobstructing left renal calculus
--- NOTE | 2020-12-23 14:46 | P.HP ---
Certification for Inpatient Patient admitted to: Observation With expected LOS: <2 Midnights Practitioner: I am a practitioner with admitting privileges, knowledge of patient current condition, hospital course, and medical plan of care. Services: Services provided to patient in accordance with Admission requirements found in Title 42 Section 412.3 of the Code of Federal Regulations Patient History Date of Service: 12/23/20 Reason for admission: Anemia History of Present Illness: 40-year-old female, sent to the ED from longterm due to hemoglobin of 6 on routine lab work. Patient is asymptomatic, denies any fatigue, shortness of breath, edema, pica, tachycardia, palpitations. Patient reports a history of some bleeding per rectum, which she attributes to hemorrhoids. She denies any recent bleeding. She denies any history of anemia. 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 She has urinary/stool incontinence. She is on Eliquis due to history of DVT many years ago in right lower extremity. She does report a history of GERD/gastritis. She reports having a colonoscopy Many years ago, and was "okay". In the ED, labwork notable for leukocytosis of 15.7, hemoglobin: 6.9, MCV: 78, CMP rather unremarkable. She was Hemoccult-positive Allergies iodine Allergy (Severe, Verified 01/29/15 12:07) Rash cephalexin monohydrate [From Keflex] Allergy (Verified 06/22/15 02:32) Rash Home Medications: Baclofen [Lioresal] 20 mg PO TID 03/19/13 Fluoxetine HCl 60 mg PO DAILY 03/19/13 Hydromorphone [Dilaudid*] 4 mg PO QID 03/19/13 Ascorbic Acid [Vitamin C*] 500 mg PO DAILY #30 tablet 04/04/13 Trazodone [Desyrel*] 100 mg PO BEDTIME 03/05/14 Levothyroxine [Synthroid*] 100 mcg PO DAILY 09/19/14 hydrOXYzine HCL [Atarax] 50 mg PO TID 09/19/14 Cholecalciferol (Vitamin D3) [Vitamin D 1000 Iu Tab*] 1,000 unit PO BEDTIME 04/23/15 Famotidine [Pepcid*] 20 mg PO BID 04/23/15 Tramadol HCl [Ultram] 50 mg PO BEDTIME PRN 04/23/15 Dabigatran Etexilate Mesylate [Pradaxa] 150 mg PO BID 06/22/15 FLUCONAZOLE 200mg IVPB [Diflucan 200 MG/100 ML IVPB (PREMIX)] 200 mg IV DAILY 14 Days bag 06/25/15 Wmcthcgmbjqh-Zizg-Sgvbxdsq,Iso [Zosyn 3.375 gm/50 ml Galaxy] 3.375 gm IV Q8H 14 Days ml 06/25/15 - Past Medical/Surgical History Diabetic: No -: MRSA in wound(2011) -: paralysis -: Paraplegia T-12 -: L1 fracture -: Depression -: GERD -: splenectomy -: partial intestine removal -: partial liver removal -: left kidney surgery -: brain shunt -: cholecystectomy -: DVT x1 - Family History Father -: Diabetes - Social History Smoking Status: Never smoker Alcohol use: No CD- Drugs: No Caffeine use: Yes Review of Systems 10-point ROS is otherwise unremarkable Physical Examination - Physical Exam General: Alert, In no apparent distress, Oriented x3, Other (Pale) HEENT: Mucous membr. moist/pink, EOMI Neck: Supple Respiratory: Clear to auscultation bilaterally, Normal air movement Cardiovascular: No edema, Regular rate/rhythm Gastrointestinal: Soft and benign, Non-distended, No tenderness Musculoskeletal: No erythema Integumentary: No rashes Neurological: Normal speech, Normal affect, Abnormal strength (Paraplegic, waist down) - Studies Laboratory Data (last 24 hrs) 12/23/20 12:24: PT 15.2 H, INR 1.32, APTT 30.4 12/23/20 12:24: Sodium 142, Potassium 4.3, BUN 14, Creatinine 0.53 L, Glucose 96, Total Bilirubin 0.2, AST 11 L, ALT 23, Alkaline Phosphatase 86, Lipase 38 L 12/23/20 12:24: WBC 15.70 H D, Hgb 6.9 L*, Hct 23.1 L, Plt Count 664 H Assessment and Plan - Advance Directives Does patient have a Living Will: No Does patient have a Durable POA for Healthcare: Yes Physician Review Additional Text: Problem List: Acute anemia Hemoccult-positive GERD/gastritis. Depression Paraplegia (T12-L1) traumatic spinal cord injury h/o DVT on chronic anticoagulation-Eliquis -the ER has ordered to transfuse 2 units PRBCs -with Hemoccult-positive, concern for upper GI bleed, history of gastritis/GERD -Protonix drip, NPO, IV fluids -microcytic anemia workup ordered, likely iron deficient, may need IV iron infusion prior to discharge, f/u labs -asymptomatic, so suspect slow bleed -GI consulted -hold home Eliquis, SCDs ordered -obtain home medications, and restart as appropriate Dispo: back to longterm, ~24-48hrs Time Spent Managing Pts Care (In Minutes): 60
[2020-12-23] MEDS ORDERED: NA CHLORIDE 0.9% 100 ML ONE (15:21)
[2020-12-23 15:44] LABS: Ferritin 2.9 ng/mL (8-388)
[2020-12-23] MEDS ORDERED: NA CHLORIDE 0.9% 250 ML IV SCH (19:13)
[2020-12-23] MEDS: PANTOPRAZOLE INJ 80 MG in NA CHLORIDE 0.9% 250 ML IV SCH (19:13)
[2020-12-23 19:58] VITALS: BMI 44.1
[2020-12-23] MEDS: ONDANSETRON 4 MG/2 ML VIAL IV PRN ×2 (19:58→23:57)
[2020-12-23] MEDS: MORPHINE 2 MG/ML SYR IV PRN ×2 (19:58→23:56)
[2020-12-23] MEDS: NA CHLORIDE 0.9% 1,000 ML IV SCH (19:59)
[2020-12-23] MEDS ORDERED: NA CHLORIDE 0.9% 250 ML ONE (23:02)
[2020-12-24] MEDS: PANTOPRAZOLE INJ 80 MG in NA CHLORIDE 0.9% 250 ML IV SCH ×2 (01:53→05:13)
[2020-12-24] MEDS ORDERED: NA CHLORIDE 0.9% 250 ML ONE (02:05)
[2020-12-24] MEDS ORDERED: PANTOPRAZOLE 40 MG INJ ONE (02:08)
[2020-12-24] MEDS ORDERED: DIPHENHYDRAMINE 50 MG/ML VIAL IV ONE (02:41)
[2020-12-24] MEDS: ONDANSETRON 4 MG/2 ML VIAL IV PRN ×3 (03:48→12:37)
[2020-12-24] MEDS: MORPHINE 2 MG/ML SYR IV PRN ×3 (03:48→12:37)
[2020-12-24 04:33] LABS: Absolute Lymphocytes (CBC) 5.4 K/uL (0.7-4.9); Basophils % 0.7 % (0-1.3); Hematocrit 27.3 % (36.0-45.0); Lymphocytes % 34.8 % (15.3-44.8); MPV 7.4 fL (7.6-11.3); RBC Red Blood Cell Count 3.46 M/uL (3.86-4.86)
[2020-12-24] MEDS: NA CHLORIDE 0.9% 1,000 ML IV SCH (08:15)
[2020-12-24] MEDS ORDERED: PANTOPRAZOLE INJ 80 MG in NA CHLORIDE 0.9% 250 ML IV SCH (12:00)
[2020-12-24] MEDS ORDERED: Ringers Lactate 1,000 ML IV ONE (13:03)
[2020-12-24] MEDS ORDERED: EPINEPHRINE/PF 1 MG/ML AMP ONE (13:25)
[2020-12-24] MEDS ORDERED: GLYCOPYRROLATE 0.2 MG/ML SYR ONE (13:50)
[2020-12-24] MEDS ORDERED: propofoL 200 MG/20 ML VIAL IV ONE (13:50)
[2020-12-24] MEDS ORDERED: LIDOCAINE 1% MPF 5 ML VIAL ONE (13:50)
--- NOTE | 2020-12-24 13:56 | P.PN ---
Subjective Date of Service: 12/24/20 Chief Complaint: Anemia Patient denies any complain today. She has had no bloody bowel movement. She denies any abdominal pain. Physical Examination - Vital Signs Temperature: 96.9 F Blood Pressure: 152/89 Pulse: 101 Respirations: 20 Pulse Ox (%): 100 - Physical Exam General: Alert, In no apparent distress, Obese Neck: JVD not distended Respiratory: Clear to auscultation bilaterally, Normal air movement Cardiovascular: No edema, Regular rate/rhythm, Normal S1 S2 Gastrointestinal: Normal bowel sounds, No tenderness Musculoskeletal: No swelling Integumentary: No rashes Neurological: Other (Paraplegia) - Studies Laboratory Data (last 24 hrs) 12/24/20 04:06: WBC 15.50 H, Hgb 8.7 L, Hct 27.3 L D, Plt Count 558 H Assessment And Plan - Current Problems (Diagnosis) (1) Acute blood loss anemia Current Visit: Yes Status: Acute (2) GI bleed Current Visit: Yes Status: Acute (3) Paraplegia Onset Date: 04/24/15 Current Visit: No Status: Chronic (4) History of DVT (deep vein thrombosis) Current Visit: Yes Status: Acute Physician Review Additional Text: Problem List: Acute anemia Hemoccult-positive GERD/gastritis. Depression Paraplegia (T12-L1) traumatic spinal cord injury h/o DVT on chronic anticoagulation-Eliquis -status post 2 units PRBC transfusion -with Hemoccult-positive, concern for upper GI bleed, history of gastritis/GERD. Patient also reports history of hemorrhoid. -On Protonix drip. -seen by GI, Dr. Jamison. Patient to undergo EGD today. -iron deficiency. Was start IV iron and discharged her with iron polysaccharide. -continue to hold home Eliquis, SCDs ordered
[2020-12-24] MEDS: HYDROMORPHONE HCL 1 MG/ML INJ ONE ×2 (14:20→14:30)
[2020-12-24 16:37] VITALS: O2SAT 91
[2020-12-24 17:49] VITALS: BP 119/77; TEMP 97
--- NOTE | 2020-12-24 18:13 | OP ---
Surgeon: Austin Jamison MD Procedure Performed: Esophagogastroduodenoscopy. Indications For Procedure: Severe anemia, suspicion of upper GI bleed. Plan For Anesthesia: Monitored anesthesia care. Complexity: High due to the patient's comorbidities and risk status. Technique: After obtaining informed consent from the patient and explaining risks and complications which include, but are not limited to bleeding, infection, perforation, and anesthesia complication, the patient was placed in the left lateral position. Sedation was given. From then on, the scope wa s advanced to the mouth and carefully guided up till the third portion of the duodenum. After the co mpletion of examination, scope and equipment were withdrawn and procedure terminated in a safe manner . Findings: Esophagus: No gross lesion seen in the entire esophagus. Stomach: Moderate patchy erythema seen in the body and antrum. Biopsies taken. On retroflexion in the fundus, there were 2 areas that were suspicious of submucosal gastric masses. They appeared to b e firm to the touch. Multiple biopsies were taken. Duodenum: The bulb second and third portion appeared normal. Biopsies taken to rule out celiac dise ase. Complications: None. Tolerance To Anesthesia: Excellent. Postoperative Diagnoses: Gastritis, submucosal gastric masses. Plan: 1.Await pathology results. 2.Oral PPI. 3.Regular diet. 4.If biopsies of the gastric mass are negative, will probably benefit EUS at a tertiary care center. Also, she may need a colonoscopy for the workup of anemia. The patient can follow up with us upon discharge and advanced endoscopies at the [facility]. US/MODL Voice ID: [id number] Report ID: [id number]
[2020-12-25] MEDS ORDERED: PANTOPRAZOLE 40MG TABLET PO SCH (06:30)
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
== END 2020-12-24 20:10 | DRG 378 ==
LOC: ER 11:34 → ERHOLD 14:44 → 2ND 18:22 → OBSVTOIN 12-24 11:33
PROVIDERS: ADMIT Hospitalist; ATTEND Internal Medicine
PROC: 30233N1 Transfusion of Nonautologous Red Blood Cells into Peripheral Vein, Percutaneous Approach (ICD-10-PCS; 2020-12-24)
PROC: 0DB78ZX Excision of Stomach, Pylorus, Via Natural or Artificial Opening Endoscopic, Diagnostic (ICD-10-PCS; principal; 2020-12-24 13:30)
DX: K29.71 Gastritis, unspecified, with bleeding (principal); G82.20 Paraplegia, unspecified; Z68.41 Body mass index [BMI] 40.0-44.9, adult; D62 Acute posthemorrhagic anemia; K21.9 Gastro-esophageal reflux disease without esophagitis; E66.9 Obesity, unspecified; F32.9 Major depressive disorder, single episode, unspecified; K31.9 Disease of stomach and duodenum, unspecified; Z88.8 Allergy status to other drugs, medicaments and biological substances; Z91.013 Allergy to seafood; Z79.890 Hormone replacement therapy; Z79.01 Long term (current) use of anticoagulants; Z79.899 Other long term (current) drug therapy; Z86.14 Personal history of Methicillin resistant Staphylococcus aureus infection; Z90.49 Acquired absence of other specified parts of digestive tract; Z86.718 Personal history of other venous thrombosis and embolism; Z20.822 Contact with and (suspected) exposure to COVID-19
CPT/HCPCS: 36415; 36430; 74176; 80048; 80076; 82607; 82728; 83540; 83605; 83690; 84145; 84466; 85025; 85610; 85730; 86140; 86850; 86900; 86901; 88305; 88312; 94760; 96374; 96375; 99285; C9113; G0378; J0171; J1170; J1200; J2270; J2405; J2550; J2704; J7030; J7050; J7120; P9016; U0003

== ENCOUNTER 2020-12-25 01:51 | Inpatient (IN) | payer OTHER ==
[2020-12-25 03:02] LABS: Absolute Lymphocytes (CBC) 4.3 K/uL (0.7-4.9); Basophils % 0.5 % (0-1.3); Hematocrit 28.9 % (36.0-45.0); Lymphocytes % 22.4 % (15.3-44.8); MPV 7.3 fL (7.6-11.3)
[2020-12-25] MEDS ORDERED: PANTOPRAZOLE 40 MG INJ ONE ×2 (03:15→14:53)
[2020-12-25 03:22] LABS: ALT/SGPT 25 U/L (12-78); AST/SGOT 16 U/L (15-37); Albumin 3.2 g/dL (3.4-5.0); Alkaline Phosphatase 86 U/L (45-117); BUN Blood Urea Nitrogen 9 mg/dL (7-18); Bicarbonate 27 mmol/L (21-32); Bilirubin Direct 0.1 mg/dL (0-0.2); Bilirubin Total 0.3 mg/dL (0.2-1.0); Glucose Level 93 mg/dL (74-106); Lipase 55 U/L (73-393); Potassium 3.5 mmol/L (3.5-5.1); Protein, Total 7.6 g/dL (6.4-8.2); Sodium Level 140 mmol/L (136-145)
--- NOTE | 2020-12-25 04:44 | ER ---
Nurse's Notes [facility] Name: Lashon Martinez Age: 40 yrs Sex: Female : 1980 Arrival Date: 12/25/2020 Time: 01:51 Bed 8 Private MD: Diagnosis: Unspecified abdominal pain;Obesity, unspecified;Anemia, unspecified;Elevated white blood cell count Presentation: 12/25 01:53 Chief complaint: EMS states: Pt was just discharged yesterday admitted for Abnormal labs and was given 2 units PRBC. Pt from [facility], was complaining of nausea, vomiting and diarrhea and was given Phenergan and Imodium. Pt called EMS and Facility Nurse was unaware as Pt was no longer having nausea and vomiting. Pt states she just wants to find out what is wrong with her. Coronavirus screen: Client denies travel out of the [place] in the last 14 days. At this time, the client does not indicate any symptoms associated with coronavirus-19. Ebola Screen: Patient negative for fever greater than or equal to 101.5 degrees Fahrenheit, and additional compatible Ebola Virus Disease symptoms Patient denies exposure to infectious person. Initial Sepsis Screen: Does the patient meet any 2 criteria? HR > 90 bpm. Does the patient have a suspected source of infection? No. Patient's initial sepsis screen is negative. Risk Assessment: Do you want to hurt yourself or someone else? Patient reports no desire to harm self or others. Onset of symptoms was December 25, 2020. 01:53 Method Of Arrival: EMS: [facility] 01:53 Acuity: VINNIE 3 RN ORTHOPAEDIC: 02:50 lmp unknown mg2 Historical: - Allergies: 01:59 Iodine; :59 Keflex; 01:59 SEAFOOD; - Home Meds: 01:59 baclofen 20 mg Oral tab 1 tab 4 times per day [Active]; bupropion HCl 150 mg Oral TbER 1 tab once daily [Active]; Eliquis 5 mg Oral tab 1 tab 2 times per day [Active]; fluoxetine 40 mg Oral cap 2 caps once daily [Active]; hydromorphone 4 mg Oral tab 1 tab every 6 hours [Active]; levothyroxine 150 mcg tab 1 tab once daily [Active]; Pradaxa 150 mg Oral cap 1 cap 2 times per day [Active]; trazodone 150 mg Oral tab 1 tab nightly [Active]; - PMHx: :59 Depression; GERD; MOOD D/O; Obesity; Paraplegia; wh - Immunization history:: Adult Immunizations up to date. - Social history:: Smoking status: Patient/guardian denies using. - Family history:: not pertinent. Screenin:59 Abuse screen: Denies threats or abuse. Denies injuries from another. Nutritional wh screening: No deficits noted. Tuberculosis screening: No symptoms or risk factors identified. Fall Risk None identified. Assessment: :59 General: Appears in no apparent distress. Behavior is calm, cooperative, appropriate wh for age. Pain: Complains of pain in abdomen Quality of pain is described as crampy. Neuro: Level of Consciousness is awake, alert, obeys commands, Oriented to person, place, time, situation, Appropriate for age. Cardiovascular: Capillary refill < 3 seconds. Respiratory: Airway is patent Respiratory effort is even, unlabored, Respiratory pattern is regular, symmetrical. GI: Abdomen is round non-distended, Abd is soft and non tender Reports lower abdominal pain, cramping, diarrhea, nausea, vomiting. : Reports incontinence. EENT: No signs and/or symptoms were reported regarding the EENT system. Derm: Skin is intact, is healthy with good turgor, Skin is pink, warm \\T\\ dry. normal. Musculoskeletal: Reports Pareplegia. 07:43 Reassessment: Patient appears in no apparent distress at this time. Patient is alert, tw2 oriented x 3, equal unlabored respirations, skin warm/dry/pink. pt appears to be sleeping at this time. 08:27 Reassessment: Patient appears in no apparent distress at this time. Patient and/or tw2 family updated on plan of care and expected duration. Pain level reassessed. Patient is alert, oriented x 3, equal unlabored respirations, skin warm/dry/pink. 08:48 Reassessment: pt c/o pain and nausea, requesting medications, hospitalist Dr. Camarillo jl7 notified and states "I'll put orders in.". Vital Signs: 01:53 BP 128 / 94; Pulse 98; Resp 18; Temp 98.4; Pulse Ox 98% ; Weight 143.34 kg; Height 5 wh ft. 11 in. (180.34 cm); 07:00 BP 127 / 77; Pulse 93; Resp 17; Pulse Ox 97% on R/A; tw2 08:27 BP 147 / 87; Pulse 92; Resp 17; Pulse Ox 97% on R/A; tw2 11:05 Weight 143.34 kg (R); Height 5 ft. 11 in. (180.34 cm) (R); tw2 11:05 Body Mass Index 44.07 (143.34 kg, 180.34 cm) tw2 ED Course: 01:51 Patient arrived in ED. mw2 01:52 Shady Emerson, RN is Primary Nurse. wh 01:57 Triage completed. wh 01:59 Patient has correct armband on for positive identification. Placed in gown. Bed in low wh position. Call light in reach. Side rails up X 1. Pulse ox on. NIBP on. 01:59 Arm band placed on right wrist. wh 02:40 Rafael Bhakta MD is Attending Physician. hue 02:40 Inserted saline lock: 22 gauge in left wrist, using aseptic technique. Blood collected. mg2 02:50 No provider procedures requiring assistance completed. mg2 03:30 CT Abd/Pelvis - Without Contrast In Process Unspecified. EDMS 04:40 Canelo Camarillo is Hospitalizing Provider. hue 07:08 Primary Nurse role handed off by Shady Emerson, KIKE bd 07:14 Cira Guido, KIKE is Primary Nurse. 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 10:43 Patient admitted, IV remains in place. intact, No redness/swelling at site. jl7 Administered Medications: 03:02 Drug: ProTONIX 40 mg Route: IVP; Site: left wrist; wh 07:00 Follow up: Response: No adverse reaction jl7 04:51 Drug: Flagyl 500 mg Volume: 100 ml; Route: IVPB; Rate: 200 ml/hr; Infused Over: 30 mg2 mins; Site: left wrist; 04:52 Drug: Cipro (ciprofloxacin) 400 mg Volume: 200 ml; Route: IVPB; Infused Over: 60 mins; mg2 Site: left wrist; Outcome: 04:43 Decision to Hospitalize by Provider. hue 10:43 Admitted to ER Hold. Please see UnboundID for further documentation. jl7 10:43 Condition: stable 10:43 Discharge instructions given to patient, Instructed on the need for admit. 18:46 Patient left the ED. tw2 Signatures: Dispatcher [employer] EDShari Nolasco Corey, MD MD cha Wise, Tara RN RN tw2 Juanjose Babb RN RN jl7 Shady Emerson RN RN Juan C Thompson 2 Reji Villalobos RN RN mg2
--- NOTE | 2020-12-25 04:44 | EDPHYS ---
Physician Documentation [facility] Name: Lashon Martinez Age: 40 yrs Sex: Female : 1980 Arrival Date: 12/25/2020 Time: 01:51 Bed 8 Private MD: ED Physician Rafael Bhakta HPI: 12/25 02:55 This 40 yrs old Female presents to ER via EMS with complaints of abd pain, hue nausea and vomiting. 02:55 The patient presents with abdominal pain in the upper abdomen, in the lower abdomen, hue abdominal distention in the upper abdomen, in the lower abdomen. Onset: The symptoms/episode began/occurred 1 day(s) ago. The patient presents to the emergency department with nausea, vomiting. Onset: The symptoms/episode began/occurred 1 day(s) ago. Possible causes: unknown. The symptoms do not radiate. Modifying factors: The symptoms are alleviated by nothing, the symptoms are aggravated by nothing. EKG MONITOR: 02:50 lmp unknown mg2 Historical: - Allergies: :59 Iodine; wh 01:59 Keflex; 01:59 SEAFOOD; - Home Meds: 01:59 baclofen 20 mg Oral tab 1 tab 4 times per day [Active]; bupropion HCl 150 mg Oral TbER wh 1 tab once daily [Active]; Eliquis 5 mg Oral tab 1 tab 2 times per day [Active]; fluoxetine 40 mg Oral cap 2 caps once daily [Active]; hydromorphone 4 mg Oral tab 1 tab every 6 hours [Active]; levothyroxine 150 mcg tab 1 tab once daily [Active]; Pradaxa 150 mg Oral cap 1 cap 2 times per day [Active]; trazodone 150 mg Oral tab 1 tab nightly [Active]; - PMHx: 01:59 Depression; GERD; MOOD D/O; Obesity; Paraplegia; wh - Immunization history:: Adult Immunizations up to date. - Social history:: Smoking status: Patient/guardian denies using. - Family history:: not pertinent. ROS: 02:55 Constitutional: Negative for fever, chills, and weight loss, Eyes: Negative for injury, hue pain, redness, and discharge, ENT: Negative for injury, pain, and discharge, Neck: Negative for injury, pain, and swelling, Cardiovascular: Negative for chest pain, palpitations, and edema, Respiratory: Negative for shortness of breath, cough, wheezing, and pleuritic chest pain, Back: Negative for injury and pain, : Negative for injury, bleeding, discharge, and swelling, MS/Extremity: Negative for injury and deformity, Skin: Negative for injury, rash, and discoloration, Neuro: Negative for headache, weakness, numbness, tingling, and seizure, Psych: Negative for depression, anxiety, suicide ideation, homicidal ideation, and hallucinations, Allergy/Immunology: Negative for hives, rash, and allergies, Endocrine: Negative for neck swelling, polydipsia, polyuria, polyphagia, and marked weight changes. 02:55 Abdomen/GI: Positive for abdominal pain, nausea, vomiting. Exam: 02:55 Constitutional: This is a well developed, well nourished patient who is awake, alert, hue and in no acute distress. Head/Face: Normocephalic, atraumatic. Eyes: Pupils equal round and reactive to light, extra-ocular motions intact. Lids and lashes normal. Conjunctiva and sclera are non-icteric and not injected. Cornea within normal limits. Periorbital areas with no swelling, redness, or edema. ENT: Nares patent. No nasal discharge, no septal abnormalities noted. Tympanic membranes are normal and external auditory canals are clear. Oropharynx with no redness, swelling, or masses, exudates, or evidence of obstruction, uvula midline. Mucous membranes moist. Neck: Trachea midline, no thyromegaly or masses palpated, and no cervical lymphadenopathy. Supple, full range of motion without nuchal rigidity, or vertebral point tenderness. No Meningismus. Chest/axilla: Normal chest wall appearance and motion. Nontender with no deformity. No lesions are appreciated. Cardiovascular: Regular rate and rhythm with a normal S1 and S2. No gallops, murmurs, or rubs. Normal PMI, no JVD. No pulse deficits. Respiratory: Lungs have equal breath sounds bilaterally, clear to auscultation and percussion. No rales, rhonchi or wheezes noted. No increased work of breathing, no retractions or nasal flaring. Back: No spinal tenderness. No costovertebral tenderness. Full range of motion. Female : Normal external genitalia. Skin: Warm, dry with normal turgor. Normal color with no rashes, no lesions, and no evidence of cellulitis. MS/ Extremity: Pulses equal, no cyanosis. Neurovascular intact. Full, normal range of motion. Neuro: Awake and alert, GCS 15, oriented to person, place, time, and situation. Cranial nerves II-XII grossly intact. Motor strength 5/5 in all extremities. Sensory grossly intact. Cerebellar exam normal. Normal gait. Psych: Awake, alert, with orientation to person, place and time. Behavior, mood, and affect are within normal limits. 02:55 Abdomen/GI: Inspection: distension, that is mild, Bowel sounds: normal, Palpation: mild abdominal tenderness, in all quadrants, Rectal exam: rectal tone normal, Stool: normal, guaiac negative, hemorrhoid(s), are not appreciated, mass, is not appreciated, swelling, is not appreciated, Liver: no appreciated palpable abnormalities, Hernia: not appreciated. Vital Signs: 01:53 BP 128 / 94; Pulse 98; Resp 18; Temp 98.4; Pulse Ox 98% ; Weight 143.34 kg; Height 5 wh ft. 11 in. (180.34 cm); 07:00 BP 127 / 77; Pulse 93; Resp 17; Pulse Ox 97% on R/A; tw2 08:27 BP 147 / 87; Pulse 92; Resp 17; Pulse Ox 97% on R/A; tw2 11:05 Weight 143.34 kg (R); Height 5 ft. 11 in. (180.34 cm) (R); tw2 11:05 Body Mass Index 44.07 (143.34 kg, 180.34 cm) tw2 MDM: 02:41 Patient medically screened. hue 02:59 Differential diagnosis: Nonspecific abd pain, gastritis, pancreatitis, diverticulitis, hue bowel obstruction, diverticulitis, gastritis, GI Bleed, Irritable bowel syndrome, non-specific abd pain, pancreatitis, Peptic Ulcer Disease, Pyelonephritis, urinary tract infection. Data reviewed: vital signs, nurses notes, lab test result(s), EKG, radiologic studies, CT scan. Data interpreted: pvc monitor: rate is 98 beats/min, rhythm is regular, Pulse oximetry: on room air is 98 %. Interpretation: normal. Test interpretation: by ED physician or midlevel provider: ECG, plain radiologic studies. Counseling: I had a detailed discussion with the patient and/or guardian regarding: the historical points, exam findings, and any diagnostic results supporting the discharge/admit diagnosis, lab results, radiology results. 12/25 02:33 Order name: Basic Metabolic Panel [facility] 12/25 02:33 Order name: CBC with Diff [facility] 12/25 02:33 Order name: Hepatic Function [facility] 12/25 02:33 Order name: Lipase; Complete Time: 04:37 mg2 12/25 02:33 Order name: TS [facility] 12/25 02:34 Order name: Basic Metabolic Panel; Complete Time: 04:37 EDMS 12/25 02:34 Order name: CBC with Automated Diff; Complete Time: 04:37 EDMS 12/25 02:34 Order name: Liver (Hepatic) Function; Complete Time: 04:37 EDMN 12/25 02:52 Order name: CT Abd/Pelvis - Without Contrast [facility] 12/25 10:03 Order name: Blood Culture [facility] 12/25 17:04 Order name: Urine Dipstick--Ancillary (enter results) [facility] 12/25 17:04 Order name: Urine --Ancillary (enter results) [facility] 12/25 18:40 Order name: Urine Microscopic Only [facility] 12/25 02:33 Order name: IV Saline Lock; Complete Time: 02:49 mg2 12/25 02:33 Order name: Labs collected and sent; Complete Time: 02:50 mg2 Administered Medications: 03:02 Drug: ProTONIX 40 mg Route: IVP; Site: left wrist; 07:00 Follow up: Response: No adverse reaction jl7 04:51 Drug: Flagyl 500 mg Volume: 100 ml; Route: IVPB; Rate: 200 ml/hr; Infused Over: 30 mg2 mins; Site: left wrist; 04:52 Drug: Cipro (ciprofloxacin) 400 mg Volume: 200 ml; Route: IVPB; Infused Over: 60 mins; mg2 Site: left wrist; Disposition: 12/25/20 04:43 Hospitalization ordered by Canelo Camarillo for Observation. Preliminary diagnosis are Unspecified abdominal pain, Obesity, unspecified, Anemia, unspecified, Elevated white blood cell count. - Bed requested for Telemetry/MedSurg (observation). - Status is Observation. tw2 - Condition is Fair. - Problem is new. - Symptoms have improved. Signatures: Dispatcher [employer] EDMN Dirrim, Rafael Alcaraz MD MD cha Wise, Tara, RN RN tw2 Shady Emerson, RN RN Reji Villalobos, KIKE RN [facility] Juanjose Babb RN jl7 Corrections: (The following items were deleted from the chart) 09:55 04:43 Hospitalization Ordered by Canelo Camarillo for Observation. Preliminary diagnosis bd is Unspecified abdominal pain; Obesity, unspecified; Anemia, unspecified; Elevated white blood cell count. Bed requested for Telemetry/MedSurg (observation). Status is Observation. Condition is Fair. Problem is new. Symptoms have improved. hue 16:46 09:55 12/25/2020 04:43 Hospitalization Ordered by Canelo Camarillo for Observation. bd Preliminary diagnosis is Unspecified abdominal pain; Obesity, unspecified; Anemia, unspecified; Elevated white blood cell count. Bed requested for [facility] ER HOLD. Status is Observation. Condition is Fair. Problem is new. Symptoms have improved. bd 18:46 16:46 12/25/2020 04:43 Hospitalization Ordered by Canelo Camarillo for Observation. tw2 Preliminary diagnosis is Unspecified abdominal pain; Obesity, unspecified; Anemia, unspecified; Elevated white blood cell count. Bed requested for Telemetry/MedSurg (observation). Status is Observation. Condition is Fair. Problem is new. Symptoms have improved. bd
[2020-12-25] MEDS ORDERED: CIPROFLOXACIN 400mg IV 400 MG/200 ML BAG IV ONE (04:58)
[2020-12-25] MEDS ORDERED: METRONIDAZOLE 500mg IVPB 500 MG/100 ML BAG IV ONE (04:59)
[2020-12-25] MEDS ORDERED: ACETAMINOPHEN 500 MG TAB PO PRN (09:49)
[2020-12-25] MEDS: ONDANSETRON 4 MG/2 ML VIAL IV PRN ×2 (10:16→19:43)
[2020-12-25] MEDS: HYDROMORPHONE HCL 2 MG/ML inj IV PRN ×2 (10:18→19:43)
[2020-12-25] MEDS ORDERED: HYDROMORPHONE HCL 1 MG/ML INJ ONE (10:26)
[2020-12-25] MEDS ORDERED: ONDANSETRON 4 MG/2 ML VIAL ONE (10:26)
[2020-12-25] MEDS: D5 0.9 NS 1,000 ML IV SCH ×2 (10:50→20:00)
--- NOTE | 2020-12-25 10:54 | RAD REPORT ---
EXAM DESCRIPTION: CT - Abdomen Pelvis Wo Contrast - 12/25/2020 7:15 am CLINICAL HISTORY: The patient is 40 years old and is Female; ABD PAIN TECHNIQUE: Axial computed tomography images of the abdomen and pelvis without intravenous contrast. Sagittal and coronal reformatted images were created and reviewed. This CT exam was performed usi ng one or more of the following dose reduction techniques: automated exposure control, adjustment o f the mA and/or kV according to patient size, and/or use of iterative reconstruction technique. COMPARISON: CT abdomen and pelvis without contrast 12/23/2020. FINDINGS: Lung bases: Unremarkable. No mass. No consolidation. ABDOMEN: Liver: Unremarkable. Gallbladder and bile ducts: Gallbladder is surgically absent. No ductal dilation. Pancreas: Unremarkable. No ductal dilation. Spleen: There are clips in the left upper quadrant. The spleen is not visualized. There are roun d soft tissue foci possibly representing splenosis the left upper quadrant. Adrenals: Unremarkable. No mass. Kidneys and ureters: Unremarkable. No obstructing stones. No hydronephrosis. Punctate nonobs tructing calcification in the left kidney. Stomach and bowel: Unremarkable. No obstruction. No mucosal thickening. PELVIS: Appendix: No findings to suggest acute appendicitis. Bladder: Unremarkable. No stones. Reproductive: Unremarkable as visualized. ABDOMEN and PELVIS: Intraperitoneal space: Unremarkable. No free air. No significant fluid collection. Bones/joints: No acute fracture. No dislocation. There is scoliosis, unchanged. Soft tissues: Unremarkable. Vasculature: Unremarkable. No abdominal aortic aneurysm. Lymph nodes: Unremarkable. No enlarged lymph nodes. IMPRESSION: No acute findings in the abdomen or pelvis. Electronically signed by: Glynn Jones MD 12/25/2020 3:44 AM CDT Due to temporary technical issues with the PACS/Fluency reporting system, reports are being signed by the in house radiologist without review as a courtesy to ensure prompt reporting. The interpreting r adiologist is fully responsible for the content of the report.
[2020-12-25] MEDS ORDERED: D5 0.9 NS 1,000 ML IV ONE (10:55)
[2020-12-25 11:28] VITALS: BMI 44.0
[2020-12-25] MEDS ORDERED: INFLUENZA VACCINE (for 3y+) 0.5 ML DOSE IMVAC ONE (13:00)
[2020-12-25] MEDS: METOCLOPRAMIDE 10 MG/2mL INJ IV PRN (13:44)
[2020-12-25] MEDS ORDERED: METOCLOPRAMIDE 10 MG/2mL INJ ONE (13:56)
--- NOTE | 2020-12-25 14:08 | P.HP ---
Certification for Inpatient Patient admitted to: Observation With expected LOS: >2 Midnights Patient will require the following post-hospital care: Halfway Practitioner: I am a practitioner with admitting privileges, knowledge of patient current condition, hospital course, and medical plan of care. Services: Services provided to patient in accordance with Admission requirements found in Title 42 Section 412.3 of the Code of Federal Regulations Patient History Date of Service: 12/25/20 Reason for admission: nausea/vomiting. History of Present Illness: 40 y o female pt with hx of paraplegia, obesity, hypertension, diabetes type 2 and recent severe anemia deemed due to GI bleed admitted for abd pain, N/V and concerns about sepsis. Nausea episode started a while back. she also feels quite lethargic and had positive FOBT. Because of concerns for adverse event, she was started on IV fluid and also PPI therapy. she was admitted for sepsis w ork up. she denied any fever, chills, rigor, headache but she did report lower abd pain. she also has some episode of diarrhea. Allergies iodine Allergy (Severe, Verified 01/29/15 12:07) Rash cephalexin monohydrate [From Keflex] Allergy (Verified 06/22/15 02:32) Rash Home Medications: Baclofen [Lioresal] 20 mg PO QID 03/19/13 Hydromorphone [Dilaudid*] 4 mg PO QID 03/19/13 Acetaminophen [Tylenol] 650 mg PO Q4HP PRN 12/24/20 Apixaban [Eliquis] 5 mg PO BID 12/24/20 Carboxymethylcellulose Sodium 1 gtt EACH EYE Q6HP PRN 12/24/20 Cholecalciferol (Vitamin D3) [Vitamin D 1000 Iu Tab*] 1,000 unit PO DAILY 12/24/20 Cranberry Conc/C/Bacill Coag [Cranberry Tablet] 1 each PO DAILY 12/24/20 Docusate Sodium 100 mg PO BID 12/24/20 Fluoxetine HCl [Prozac] 80 mg PO DAILY 12/24/20 Ibuprofen [Motrin*] 600 mg PO TID 12/24/20 Lactulose 30 ml PO Q8HP PRN 12/24/20 Levothyroxine Sodium 150 mcg PO DAILY 12/24/20 Loperamide HCl [Imodium A-D] 2 mg PO Q1H PRN 12/24/20 Magnesium Oxide 400 mg PO BID 12/24/20 Melatonin [Melatonin*] 6 mg PO BEDTIME 12/24/20 Mineral Oil/Petrolatum,White [Artificial Tears Eye Ointment] 0.5 inch LEFT EYE BEDTIME 12/24/20 Multivitamin with Minerals [Multivitamins with Minerals] 1 each PO DAILY 12/24/20 Pantoprazole [Protonix Tab*] 40 mg PO DAILYAC #0 tab 12/24/20 Promethazine HCl 50 mg PO Q6HP PRN 12/24/20 Promethazine Suppos [Phenergan -Suppos*] 100 mg ME Q6HP PRN 12/24/20 Silver Sulfadiazine Crm [Silvadene*] 1 appl TOP Q3HP PRN 12/24/20 Trazodone [Desyrel*] 150 mg PO BEDTIME 12/24/20 buPROPion HCL [Bupropion Xl] 300 mg PO DAILY 12/24/20 - Past Medical/Surgical History Has patient received pneumonia vaccine in the past: No Diabetic: No -: MRSA in wound(2011) -: paralysis -: Paraplegia T-12 -: L1 fracture -: Depression -: GERD -: splenectomy -: partial intestine removal -: partial liver removal -: left kidney surgery -: brain shunt -: cholecystectomy -: DVT x1 - Family History Father -: Diabetes - Social History Smoking Status: Current every day smoker Alcohol use: No CD- Drugs: No Caffeine use: No Place of Residence: [place] Review of Systems General: Weakness Eyes: Unremarkable ENT: Unremarkable Respiratory: Unremarkable Cardiovascular: Unremarkable Gastrointestinal: Nausea, Vomiting, Abdominal Pain, Diarrhea Genitourinary: Unremarkable Musculoskeletal: Unremarkable Integumentary: Unremarkable Neurological: Unremarkable Physical Examination - Vital Signs Blood Pressure: 140/82 Pulse: 93 Respirations: 17 Pulse Ox (%): 97 - Physical Exam General: Alert, Oriented x3, Cooperative HEENT: Atraumatic, Normocephalic Neck: Supple Respiratory: Clear to auscultation bilaterally Cardiovascular: No edema, Regular rate/rhythm, Normal S1 S2 Gastrointestinal: Non-distended Neurological: Normal speech, Cranial nerves 3-12 intact - Studies Laboratory Data (last 24 hrs) 12/25/20 02:40: WBC 19.00 H D, Hgb 8.9 L, Hct 28.9 L, Plt Count 565 H 12/25/20 02:40: Sodium 140, Potassium 3.5, BUN 9, Creatinine 0.53 L, Glucose 93, Total Bilirubin 0.3, AST 16, ALT 25, Alkaline Phosphatase 86, Lipase 55 L Assessment and Plan - Plan 1.GI bleed-she has positive FOBT. we will started PPI therapy pending further eval by GI. 2.Sepsis-Her WBC is elevated at 19. we will continue empiric antibiotics for colitis/sepsis pending further review. 3.Anemia-Hb is low at 8.9. we will monitor routinely. we will have GI eval for GI bleed. pending review of latest biopsy from endoscopy. 4.Obesity-weight loss encouraged. 5.Paraplegia-Supportive care to be continued. 6.Back pain/spasm-we will continue muscle relaxant. Discharge Plan: Other - Advance Directives Does patient have a Living Will: No Does patient have a Durable POA for Healthcare: No - Code Status/Comfort Care Code Status: Full Code
[2020-12-25] MEDS: PANTOPRAZOLE 40 MG INJ IVP SCH ×2 (15:00→22:20)
[2020-12-25 18:39] LABS: Urine Bacteria <20 /HPF (<20); Urine RBC <5 /HPF (NONE SEEN)
[2020-12-25 20:13] LABS: Urine Blood 2+ (NEG); Urine Glucose NEGATIVE (NEG); Urine Protein TRACE (NEG); Urine Specific Gravity >1.030 (1.005-1.030)
[2020-12-26] MEDS: D5 0.9 NS 1,000 ML IV SCH ×5 (01:04→21:28)
[2020-12-26] MEDS: HYDROMORPHONE HCL 2 MG/ML inj IV PRN ×4 (01:44→19:30)
[2020-12-26] MEDS: ONDANSETRON 4 MG/2 ML VIAL IV PRN ×3 (01:45→17:55)
[2020-12-26 04:59] LABS: Absolute Lymphocytes (CBC) 6.3 K/uL (0.7-4.9); Basophils % 0.8 % (0-1.3); Hematocrit 27.4 % (36.0-45.0); Lymphocytes % 34.5 % (15.3-44.8); MPV 7.5 fL (7.6-11.3); RBC Red Blood Cell Count 3.39 M/uL (3.86-4.86)
[2020-12-26 05:09] LABS: ALT/SGPT 20 U/L (12-78); AST/SGOT 10 U/L (15-37); Albumin 2.7 g/dL (3.4-5.0); Alkaline Phosphatase 71 U/L (45-117); BUN Blood Urea Nitrogen 4 mg/dL (7-18); Bicarbonate 28 mmol/L (21-32); Bilirubin Total 0.2 mg/dL (0.2-1.0); Glucose Level 94 mg/dL (74-106); Magnesium 1.9 mg/dL (1.8-2.4); Phosphorus 2.8 mg/dL (2.5-4.9); Potassium 3.4 mmol/L (3.5-5.1); Protein, Total 6.4 g/dL (6.4-8.2); Sodium Level 142 mmol/L (136-145)
[2020-12-26] MEDS ORDERED: POTASSIUM CL SA 10 MEQ TAB PO ONE ×2 (06:00→21:00)
[2020-12-26] MEDS: PANTOPRAZOLE 40 MG INJ IVP SCH ×2 (08:00→21:32)
[2020-12-26] MEDS ORDERED: CALCIUM CARBONATE CHEW 500MG TAB PO PRN (11:16)
[2020-12-26] MEDS ORDERED: TRAZODONE 50 MG TABLET PO PRN (11:16)
[2020-12-26] MEDS ORDERED: PROMETHAZINE 25 MG TABLET PO PRN (11:16)
[2020-12-26] MEDS ORDERED: PROMETHAZINE PR PRN (11:16)
[2020-12-26] MEDS: METOCLOPRAMIDE 10 MG/2mL INJ IV PRN ×2 (12:00→21:32)
[2020-12-26] MEDS: SUCRALFATE 1 GM TABLET PO SCH ×2 (12:00→16:55)
[2020-12-26] MEDS: BACLOFEN 10 MG TAB PO SCH ×3 (13:11→21:33)
--- NOTE | 2020-12-26 13:27 | P.PN ---
Subjective Date of Service: 12/26/20 Chief Complaint: nausea/vomiting. Patient reports diarrhea today. She has not vomited today by report intermittent nausea. She has been afebrile. Physical Examination - Vital Signs Temperature: 96.5 F Blood Pressure: 122/59 Pulse: 95 Respirations: 16 Pulse Ox (%): 96 - Physical Exam General: Alert, In no apparent distress HEENT: Mucous membr. moist/pink Neck: No Thyromegaly Respiratory: Clear to auscultation bilaterally, Normal air movement Cardiovascular: No edema, Regular rate/rhythm, Normal S1 S2 Gastrointestinal: Normal bowel sounds, Soft and benign, Non-distended, No tenderness Musculoskeletal: No swelling, No tenderness Integumentary: No rashes, No erythema Neurological: Other (Paraplegia.) Assessment And Plan - Current Problems (Diagnosis) (1) Nausea and vomiting Current Visit: Yes Status: Acute (2) Gastroenteritis Current Visit: Yes Status: Acute (3) History of DVT (deep vein thrombosis) Current Visit: No Status: Acute (4) Chronic back pain Current Visit: No Status: Chronic - Plan UA no significant evidence of UTI. Start IV Flagyl and Levaquin. Check stool for WBC, C. diff, and stool culture. Antiemetics p.r.n. patient states promethazine works best for her. Monitor CBC to follow leukocytosis. PPI once C. diff has been ruled out. Continue Eliquis for history of DVT. Management for chronic pain as needed.
[2020-12-26] MEDS: FLUTICASONE 50MCG NASAL SPRAY NAS SCH (21:31)
[2020-12-26] MEDS: MAGNESIUM OXIDE 400 MG TAB PO SCH (21:33)
[2020-12-26] MEDS: APIXABAN 5 MG TABLET PO SCH (21:33)
[2020-12-26] MEDS: MELATONIN 3 MG TABLET PO SCH (21:34)
[2020-12-27] MEDS: HYDROMORPHONE HCL 2 MG/ML inj IV PRN ×4 (01:01→18:05)
[2020-12-27] MEDS: ONDANSETRON 4 MG/2 ML VIAL IV PRN ×4 (01:02→18:05)
[2020-12-27] MEDS ORDERED: DIPHENHYDRAMINE 25 MG TAB/CAP PO ONE (02:54)
[2020-12-27] MEDS: METOCLOPRAMIDE 10 MG/2mL INJ IV PRN ×2 (03:13→09:31)
[2020-12-27 06:17] LABS: Absolute Lymphocytes (CBC) 6.1 K/uL (0.7-4.9); Basophils % 0.8 % (0-1.3); Hematocrit 25.2 % (36.0-45.0); Lymphocytes % 34.2 % (15.3-44.8); MPV 7.4 fL (7.6-11.3); RBC Red Blood Cell Count 3.11 M/uL (3.86-4.86)
[2020-12-27 06:23] LABS: BUN Blood Urea Nitrogen 5 mg/dL (7-18); Bicarbonate 30 mmol/L (21-32); Glucose Level 89 mg/dL (74-106); Potassium 4.3 mmol/L (3.5-5.1); Sodium Level 144 mmol/L (136-145)
[2020-12-27] MEDS: LEVOTHYROXINE SOD 0.075 MG TAB PO SCH (06:31)
[2020-12-27] MEDS: FLUTICASONE 50MCG NASAL SPRAY NAS SCH ×2 (09:00→20:54)
[2020-12-27] MEDS ORDERED: CEFTRIAXONE 1 GM/NS 50 ML 1 GM/50 ML BAG IV SCH (09:00)
[2020-12-27] MEDS: D5 0.9 NS 1,000 ML IV SCH ×2 (09:12→23:08)
[2020-12-27] MEDS: APIXABAN 5 MG TABLET PO SCH ×2 (09:13→20:55)
[2020-12-27] MEDS: VITAMIN D 1000 UNIT TAB PO SCH (09:13)
[2020-12-27] MEDS: SUCRALFATE 1 GM TABLET PO SCH ×3 (09:13→17:27)
[2020-12-27] MEDS: PANTOPRAZOLE 40 MG INJ IVP SCH ×2 (09:13→20:55)
[2020-12-27] MEDS: FLUOXETINE 20 MG CAP PO SCH (09:13)
[2020-12-27] MEDS: LORATADINE 10 MG TAB PO SCH (09:13)
[2020-12-27] MEDS: BUPROPION HCL XL 150 MG TAB PO SCH (09:14)
[2020-12-27] MEDS: MAGNESIUM OXIDE 400 MG TAB PO SCH ×2 (09:14→20:56)
[2020-12-27] MEDS: METRONIDAZOLE 500mg IVPB 500 MG/100 ML BAG IV SCH ×2 (09:31→17:23)
[2020-12-27] MEDS: BACLOFEN 10 MG TAB PO SCH ×4 (09:31→20:56)
[2020-12-27] MEDS: Levofloxacin500mg IV 500 MG/100 ML BAG IV SCH (09:31)
--- NOTE | 2020-12-27 11:39 | P.PN ---
Subjective Date of Service: 12/27/20 Chief Complaint: nausea/vomiting. Patient is doing better today. She is tolerating soft diet, no nausea or vomiting. She stated her last bowel movement was yesterday. Physical Examination - Vital Signs Temperature: 96.9 F Blood Pressure: 125/65 Pulse: 93 Respirations: 16 Pulse Ox (%): 96 - Physical Exam General: Alert, In no apparent distress, Oriented x3 HEENT: Mucous membr. moist/pink Neck: Supple, JVD not distended Respiratory: Clear to auscultation bilaterally, Normal air movement Cardiovascular: No edema, Regular rate/rhythm, Normal S1 S2 Gastrointestinal: Normal bowel sounds, Soft and benign, Non-distended, No tenderness Musculoskeletal: No swelling Integumentary: No rashes Neurological: Other (Paraplegia) Assessment And Plan - Current Problems (Diagnosis) (1) Nausea and vomiting Current Visit: Yes Status: Acute (2) Gastroenteritis Current Visit: Yes Status: Acute (3) History of DVT (deep vein thrombosis) Current Visit: No Status: Acute (4) Chronic back pain Current Visit: No Status: Chronic - Plan UA no significant evidence of UTI. Urine culture is growing Gram negative rods. Follow cultures organism identification and sensitivity. IV Flagyl and Levaquin. Stool studies, C. diff are pending Antiemetics p.r.n. patient states promethazine works best for her. Monitor CBC to follow leukocytosis. PPI once C. diff has been ruled out. Continue Eliquis for history of DVT. Management for chronic pain as needed. Possible discharge to [facility] once final culture results
[2020-12-27 13:02] LABS: C.diff Antigen/Toxin Ag neg : Tox neg (NEG : NEG)
[2020-12-27] MEDS: MELATONIN 3 MG TABLET PO SCH (20:56)
[2020-12-27] MEDS: SODIUM CHLORIDE 0.9% 10ML INJ IV PRN (20:57)
[2020-12-28] MEDS: HYDROMORPHONE HCL 2 MG/ML inj IV PRN ×4 (00:04→17:53)
[2020-12-28] MEDS: ONDANSETRON 4 MG/2 ML VIAL IV PRN ×4 (00:04→17:53)
[2020-12-28] MEDS: METRONIDAZOLE 500mg IVPB 500 MG/100 ML BAG IV SCH ×2 (00:05→09:00)
[2020-12-28] MEDS ORDERED: DIPHENHYDRAMINE 25 MG TAB/CAP PO ONE (01:06)
[2020-12-28] MEDS: LEVOTHYROXINE SOD 0.075 MG TAB PO SCH (05:43)
[2020-12-28 06:11] LABS: Absolute Lymphocytes (CBC) 5.9 K/uL (0.7-4.9); BUN Blood Urea Nitrogen 7 mg/dL (7-18); Basophils % 1.2 % (0-1.3); Bicarbonate 30 mmol/L (21-32); Glucose Level 100 mg/dL (74-106); Hematocrit 25.8 % (36.0-45.0); Lymphocytes % 33.1 % (15.3-44.8); MPV 7.3 fL (7.6-11.3); Potassium 4.1 mmol/L (3.5-5.1); RBC Red Blood Cell Count 3.21 M/uL (3.86-4.86); Sodium Level 143 mmol/L (136-145)
[2020-12-28] MEDS: Levofloxacin500mg IV 500 MG/100 ML BAG IV SCH (09:00)
[2020-12-28] MEDS: VITAMIN D 1000 UNIT TAB PO SCH (10:12)
[2020-12-28] MEDS: MAGNESIUM OXIDE 400 MG TAB PO SCH ×2 (10:12→20:20)
[2020-12-28] MEDS: BUPROPION HCL XL 150 MG TAB PO SCH (10:12)
[2020-12-28] MEDS: APIXABAN 5 MG TABLET PO SCH ×2 (10:12→20:20)
[2020-12-28] MEDS: BACLOFEN 10 MG TAB PO SCH ×4 (10:12→20:20)
[2020-12-28] MEDS: SUCRALFATE 1 GM TABLET PO SCH ×3 (10:12→17:52)
[2020-12-28] MEDS: FLUOXETINE 20 MG CAP PO SCH (10:12)
[2020-12-28] MEDS: LORATADINE 10 MG TAB PO SCH (10:13)
[2020-12-28] MEDS: PANTOPRAZOLE 40 MG INJ IVP SCH ×2 (10:13→20:19)
[2020-12-28] MEDS: FLUTICASONE 50MCG NASAL SPRAY NAS SCH ×2 (10:14→20:21)
[2020-12-28] MEDS: D5 0.9 NS 1,000 ML IV SCH ×3 (10:22→20:30)
--- NOTE | 2020-12-28 11:43 | P.PN ---
Subjective Date of Service: 12/28/20 Chief Complaint: nausea/vomiting. Patient is doing better today. She is tolerating soft diet, no nausea or vomiting. She has no new complaint today. Urine culture is growing Providencia. Stool for C. diff is negative. Physical Examination - Vital Signs Temperature: 96.9 F Blood Pressure: 137/67 Pulse: 87 Respirations: 16 Pulse Ox (%): 97 - Physical Exam General: Alert, In no apparent distress Respiratory: Clear to auscultation bilaterally, Normal air movement Cardiovascular: No edema, Regular rate/rhythm, Normal S1 S2 Gastrointestinal: Normal bowel sounds, Soft and benign, Non-distended Musculoskeletal: No swelling Integumentary: No rashes Assessment And Plan - Current Problems (Diagnosis) (1) Nausea and vomiting Current Visit: Yes Status: Acute (2) Gastroenteritis Current Visit: Yes Status: Acute (3) History of DVT (deep vein thrombosis) Current Visit: No Status: Acute (4) Chronic back pain Current Visit: No Status: Chronic - Plan UA no significant evidence of UTI. Urine culture is growing resistant Providencia. Change antibiotics to IV meropenem. Patient to be discharged with a 1 week course of IV Invanz. PICC line requested. C. diff negative Antiemetics p.r.n. Monitor CBC to follow leukocytosis. Continue Eliquis for history of DVT. Management for chronic pain as needed.
[2020-12-28] MEDS ORDERED: Meropenem 500 MG VIAL IV SCH (17:00)
[2020-12-28] MEDS: Meropenem 500 MG in NA CHLORIDE 0.9% 100 ML IV SCH (17:52)
[2020-12-28] MEDS: MELATONIN 3 MG TABLET PO SCH (20:20)
[2020-12-28] MEDS: SODIUM CHLORIDE 0.9% 10ML INJ IV PRN (20:21)
[2020-12-29] MEDS: HYDROMORPHONE HCL 2 MG/ML inj IV PRN ×2 (00:01→05:55)
[2020-12-29] MEDS: Meropenem 500 MG in NA CHLORIDE 0.9% 100 ML IV SCH ×3 (00:02→17:24)
[2020-12-29] MEDS: ONDANSETRON 4 MG/2 ML VIAL IV PRN ×4 (00:02→21:47)
[2020-12-29] MEDS ORDERED: DIPHENHYDRAMINE 25 MG TAB/CAP PO ONE (01:50)
[2020-12-29] MEDS: D5 0.9 NS 1,000 ML IV SCH ×3 (04:00→18:04)
[2020-12-29] MEDS: LEVOTHYROXINE SOD 0.075 MG TAB PO SCH (05:57)
[2020-12-29] MEDS: FLUTICASONE 50MCG NASAL SPRAY NAS SCH ×2 (08:33→20:01)
[2020-12-29] MEDS: VITAMIN D 1000 UNIT TAB PO SCH (08:34)
[2020-12-29] MEDS: FLUOXETINE 20 MG CAP PO SCH (08:34)
[2020-12-29] MEDS: APIXABAN 5 MG TABLET PO SCH ×2 (08:35→20:00)
[2020-12-29] MEDS: SUCRALFATE 1 GM TABLET PO SCH ×3 (08:36→17:23)
[2020-12-29] MEDS: BUPROPION HCL XL 150 MG TAB PO SCH (08:36)
[2020-12-29] MEDS: BACLOFEN 10 MG TAB PO SCH ×4 (08:37→20:01)
[2020-12-29] MEDS: MAGNESIUM OXIDE 400 MG TAB PO SCH ×2 (08:37→20:01)
[2020-12-29] MEDS: LORATADINE 10 MG TAB PO SCH (08:38)
[2020-12-29] MEDS: PANTOPRAZOLE 40 MG INJ IVP SCH ×2 (08:38→20:09)
--- NOTE | 2020-12-29 10:18 | P.PN ---
Subjective Date of Service: 12/29/20 Chief Complaint: nausea/vomiting. Patient has no complain. She is tolerating soft diet, no nausea or vomiting. Physical Examination - Vital Signs Temperature: 97.9 F Blood Pressure: 128/68 Pulse: 83 Respirations: 17 Pulse Ox (%): 97 - Physical Exam General: Alert, In no apparent distress Respiratory: Clear to auscultation bilaterally, Normal air movement Cardiovascular: No edema, Regular rate/rhythm, Normal S1 S2 Gastrointestinal: Normal bowel sounds, Soft and benign, Non-distended, No tenderness Musculoskeletal: No tenderness Integumentary: No rashes Assessment And Plan - Current Problems (Diagnosis) (1) Nausea and vomiting Current Visit: Yes Status: Acute (2) Gastroenteritis Current Visit: Yes Status: Acute (3) History of DVT (deep vein thrombosis) Current Visit: No Status: Acute (4) Chronic back pain Current Visit: No Status: Chronic - Plan Urine culture is growing resistant Providencia. Continue IV meropenem. Patient to be discharged with a 1 week course of IV Invanz. PICC line requested. C. diff negative Antiemetics p.r.n. Monitor CBC to follow leukocytosis. Continue Eliquis for history of DVT. Management for chronic pain as needed.
[2020-12-29] MEDS: HYDROMORPHONE ORAL 4 MG TAB PO PRN ×3 (12:05→23:58)
[2020-12-29] MEDS: METOCLOPRAMIDE 10 MG/2mL INJ IV PRN (17:24)
[2020-12-29] MEDS: SODIUM CHLORIDE 0.9% 10ML INJ IV PRN (20:01)
[2020-12-29] MEDS: MELATONIN 3 MG TABLET PO SCH (20:01)
[2020-12-30] MEDS: Meropenem 500 MG in NA CHLORIDE 0.9% 100 ML IV SCH ×3 (00:01→17:55)
[2020-12-30] MEDS: METOCLOPRAMIDE 10 MG/2mL INJ IV PRN (00:01)
[2020-12-30] MEDS ORDERED: DIPHENHYDRAMINE 25 MG TAB/CAP PO ONE (01:37)
[2020-12-30] MEDS: HYDROMORPHONE ORAL 4 MG TAB PO PRN ×4 (05:33→23:47)
[2020-12-30] MEDS: ONDANSETRON 4 MG/2 ML VIAL IV PRN ×2 (05:33→17:30)
[2020-12-30] MEDS: LEVOTHYROXINE SOD 0.075 MG TAB PO SCH (05:33)
[2020-12-30] MEDS: D5 0.9 NS 1,000 ML IV SCH ×4 (05:34→21:57)
[2020-12-30 06:03] LABS: Absolute Lymphocytes (CBC) 4.8 K/uL (0.7-4.9); Basophils % 0.6 % (0-1.3); Hematocrit 25.8 % (36.0-45.0); Lymphocytes % 27.4 % (15.3-44.8); MPV 7.6 fL (7.6-11.3); RBC Red Blood Cell Count 3.23 M/uL (3.86-4.86)
[2020-12-30 06:35] LABS: BUN Blood Urea Nitrogen 6 mg/dL (7-18); Bicarbonate 28 mmol/L (21-32); Glucose Level 106 mg/dL (74-106); Potassium 3.5 mmol/L (3.5-5.1); Sodium Level 141 mmol/L (136-145)
[2020-12-30] MEDS: FLUOXETINE 20 MG CAP PO SCH (08:02)
[2020-12-30] MEDS: FLUTICASONE 50MCG NASAL SPRAY NAS SCH ×2 (08:03→21:00)
[2020-12-30] MEDS: VITAMIN D 1000 UNIT TAB PO SCH (08:05)
[2020-12-30] MEDS: SUCRALFATE 1 GM TABLET PO SCH ×3 (08:05→17:29)
[2020-12-30] MEDS: BACLOFEN 10 MG TAB PO SCH ×4 (08:07→21:57)
[2020-12-30] MEDS: LORATADINE 10 MG TAB PO SCH (08:07)
[2020-12-30] MEDS: APIXABAN 5 MG TABLET PO SCH ×2 (08:08→21:57)
[2020-12-30] MEDS: MAGNESIUM OXIDE 400 MG TAB PO SCH ×2 (08:08→21:00)
[2020-12-30] MEDS ORDERED: POTASSIUM CL SA 10 MEQ TAB PO ONE (09:00)
[2020-12-30] MEDS: PANTOPRAZOLE 40 MG INJ IVP SCH ×2 (10:18→21:55)
[2020-12-30] MEDS: BUPROPION HCL XL 150 MG TAB PO SCH (10:18)
--- NOTE | 2020-12-30 16:57 | RAD REPORT ---
EXAM DESCRIPTION: RAD - Chest Single View - 12/30/2020 4:46 pm CLINICAL HISTORY: picc placement COMPARISON: CHEST SINGLE VIEW dated 06/24/2015; CHEST SINGLE VIEW dated 06/21/2015; CHEST SINGLE VIEW dated 04/24/2015; CHEST SINGLE VIEW dated 01/30/2015 FINDINGS: Portable chest was obtained following placement of a left upper extremity PICC line. The c atheter tip projects over the SVC.
--- NOTE | 2020-12-30 17:35 | P.PN ---
Subjective Date of Service: 12/30/20 Chief Complaint: nausea/vomiting. Patient has no complain. She is tolerating soft diet, no nausea or vomiting. PICC line placed for antibiotics. Physical Examination - Vital Signs Temperature: 97 F Blood Pressure: 130/87 Pulse: 83 Respirations: 20 Pulse Ox (%): 100 - Physical Exam General: Alert, In no apparent distress Neck: Supple, JVD not distended Respiratory: Clear to auscultation bilaterally Cardiovascular: No edema, Regular rate/rhythm Gastrointestinal: Soft and benign, Non-distended Musculoskeletal: No swelling Integumentary: No rashes Assessment And Plan - Current Problems (Diagnosis) (1) Nausea and vomiting Current Visit: Yes Status: Acute (2) Gastroenteritis Current Visit: Yes Status: Acute (3) History of DVT (deep vein thrombosis) Current Visit: No Status: Acute (4) Chronic back pain Current Visit: No Status: Chronic (5) Anemia due to chronic blood loss Current Visit: Yes Status: Acute - Plan Urine culture: resistant Providencia. Continue IV meropenem. Noted allergy to Keflex with rash. Patient to be discharged with a 1 week course of IV Invanz. PICC line palced C. diff negative Monitor CBC to follow leukocytosis. Continue Eliquis for history of DVT. Her hemoglobin has been stable around 8. Management for chronic pain as needed.
[2020-12-30] MEDS: MELATONIN 3 MG TABLET PO SCH (21:00)
[2020-12-31] MEDS: Meropenem 500 MG in NA CHLORIDE 0.9% 100 ML IV SCH ×2 (00:10→08:50)
[2020-12-31] MEDS: ONDANSETRON 4 MG/2 ML VIAL IV PRN ×2 (00:11→04:56)
[2020-12-31] MEDS: D5 0.9 NS 1,000 ML IV SCH (02:24)
[2020-12-31] MEDS: HYDROMORPHONE ORAL 4 MG TAB PO PRN ×2 (04:56→12:15)
[2020-12-31] MEDS: LEVOTHYROXINE SOD 0.075 MG TAB PO SCH (04:56)
[2020-12-31 05:55] LABS: Absolute Lymphocytes (CBC) 5.3 K/uL (0.7-4.9); Basophils % 1.7 % (0-1.3); Lymphocytes % 34.4 % (15.3-44.8); MPV 7.4 fL (7.6-11.3); RBC Red Blood Cell Count 2.99 M/uL (3.86-4.86)
[2020-12-31 06:07] LABS: BUN Blood Urea Nitrogen 7 mg/dL (7-18); Bicarbonate 30 mmol/L (21-32); Glucose Level 96 mg/dL (74-106); Magnesium 1.8 mg/dL (1.8-2.4); Potassium 3.5 mmol/L (3.5-5.1); Sodium Level 139 mmol/L (136-145)
[2020-12-31] MEDS ORDERED: MAGNESIUM SULFATE 1 gm IVPB 1 GM/100 ML BAG IV ONE ×2 (06:32→09:00)
[2020-12-31] MEDS: PANTOPRAZOLE 40 MG INJ IVP SCH (08:47)
[2020-12-31] MEDS: APIXABAN 5 MG TABLET PO SCH (08:48)
[2020-12-31] MEDS: BACLOFEN 10 MG TAB PO SCH ×2 (08:48→12:12)
[2020-12-31] MEDS: VITAMIN D 1000 UNIT TAB PO SCH (08:48)
[2020-12-31] MEDS: MAGNESIUM OXIDE 400 MG TAB PO SCH (08:48)
[2020-12-31] MEDS: LORATADINE 10 MG TAB PO SCH (08:49)
[2020-12-31] MEDS: FLUOXETINE 20 MG CAP PO SCH (08:49)
[2020-12-31] MEDS: SUCRALFATE 1 GM TABLET PO SCH ×2 (08:49→11:37)
[2020-12-31] MEDS: FLUTICASONE 50MCG NASAL SPRAY NAS SCH (08:50)
[2020-12-31] MEDS: BUPROPION HCL XL 150 MG TAB PO SCH (08:50)
[2020-12-31] MEDS ORDERED: POTASSIUM 25 MEQ EFFERV TAB PO ONE (09:00)
[2020-12-31 09:23] VITALS: O2SAT 99
[2020-12-31 12:22] LABS: Hematocrit 25.4 % (36.0-45.0)
--- NOTE | 2020-12-31 12:55 | P.DS ---
Admission Date: 12/25/20 Discharge Date: 12/31/20 Disposition: [facility] Discharge Condition: GOOD Reason for Admission: nausea/vomiting. Procedures: CT Abd/Pelvis (12/25): No acute findings in the abdomen or pelvis. CXR (12/30): Portable chest was obtained following placement of a left upper extremity PICC line. The catheter tip projects over the SVC. Problem List: Acute, simple cystitis Nausea and vomiting Gastroenteritis History of DVT Chronic back pain Anemia due to chronic blood loss and iron deficiency Brief History of Present Illness: 40 yo female pt with hx of paraplegia, obesity, hypertension, diabetes type 2 and recent severe anemia deemed due to iron deficiency and GI bleed admitted for nausea/vomiting and abdominal pain. Nausea episode started a while back. she also feels quite lethargic. Because of concerns for adverse event, she was started on IV fluid and also PPI therapy. she was admitted for sepsis work up. She denied any fever, chills, rigor, headache but she did report lower abd pain. she also has some episode of diarrhea. Hospital Course: Workup revealed a positive urine culture for resistant Providencia. She was started on IV Meropenem and had improvement of her symptoms. She reported some slight continued nausea/abdominal pain, but states it was similar to her chronic nausea/pain now. C.diff was negative. She was treated with Eliquis while in the hospital and her hemoglobin was stable around ~8.0 without any signs of overt bleeding. A picc line was placed on 12/30, and patient was discharged back to her [facility] to complete 1 additional week of IV Invanz. She is otherwise to f/u with specialists as previously advised on her last discharge. Vital Signs/Physical Exam: Physical Exam General: Alert, In no apparent distress Neck: Supple, JVD not distended Respiratory: Clear to auscultation bilaterally Cardiovascular: No edema, Regular rate/rhythm, compression stockings in place Gastrointestinal: Soft and benign, Non-distended Integumentary: No rashes Temp Pulse Resp BP Pulse Ox 98.1 F 85 16 137/94 H 96 12/31/20 08:00 12/31/20 08:00 12/31/20 08:00 12/31/20 08:00 12/31/20 08:00 Laboratory Data at Discharge: WBC 15.40 K/uL (4.3-10.9) H 12/31/20 05:30 Hgb 8.0 g/dL (12.0-15.0) L 12/31/20 12:12 Hct 25.4 % (36.0-45.0) L 12/31/20 12:12 Plt Count 466 K/uL (152-406) H 12/31/20 05:30 Sodium 139 mmol/L (136-145) 12/31/20 05:30 Potassium 3.5 mmol/L (3.5-5.1) 12/31/20 05:30 BUN 7 mg/dL (7-18) 12/31/20 05:30 Creatinine 0.39 mg/dL (0.55-1.3) L 12/31/20 05:30 Glucose 96 mg/dL (74-106) 12/31/20 05:30 Phosphorus 2.8 mg/dL (2.5-4.9) 12/26/20 04:19 Magnesium 1.8 mg/dL (1.8-2.4) 12/31/20 05:30 Total Bilirubin 0.2 mg/dL (0.2-1.0) 12/26/20 04:19 AST 10 U/L (15-37) L 12/26/20 04:19 ALT 20 U/L (12-78) 12/26/20 04:19 Alkaline Phosphatase 71 U/L (45-117) 12/26/20 04:19 Lipase 55 U/L (73-393) L 12/25/20 02:40 Home Medications: RX: Baclofen 20 mg PO QID 12/26/20 RX: Bupropion *Xl* [Wellbutrin XL*] 150 mg PO DAILY 12/26/20 RX: Calcium Carbonate [Tums Regular*] 500 mg PO TIDP PRN 12/26/20 RX: Cholecalciferol (Vitamin D3) [Vitamin D3] 1,000 unit PO DAILY 12/26/20 RX: Dabigatran Etexilate Mesylate [Pradaxa*] 150 mg PO BID 12/26/20 RX: Fluoxetine HCl [Prozac] 80 mg PO DAILY 12/26/20 RX: Fluticasone [Flonase 50MCG Nasal Dierks*] 1 spray BRYNN BID 12/26/20 RX: Hydromorphone [Dilaudid*] 4 mg PO QID PRN 12/26/20 RX: Levothyroxine Sodium [Levothyroxine] 150 mcg PO DAILY 12/26/20 RX: Loratadine [Claritin*] 10 mg PO DAILY 12/26/20 RX: Magnesium Oxide 400 mg PO BID 12/26/20 RX: Melatonin [Melatonin*] 3 mg PO BEDTIME 12/26/20 RX: Multivitamin with Minerals [Multivitamins with Minerals] 1 tab PO DAILY 12/26/20 RX: Pantoprazole Sodium [Protonix] 20 mg PO DAILY 12/26/20 RX: Promethazine HCl 50 mg PO Q6HP PRN 12/26/20 RX: Promethazine Suppos [Phenergan -Suppos*] 2 supp CO Q6HP PRN 12/26/20 RX: Sucralfate [Carafate*] 1 gm PO AC 12/26/20 RX: Trazodone HCl [Desyrel] 100 mg PO BEDTIME PRN 12/26/20 RX: Turmeric/Turmeric Root Extract [Turmeric 500 mg Capsule] 500 mg PO TID 12/26/20 RX: Ferrous Sulfate [Feosol] 325 mg PO M,W,F 60 Days #30 tablet 12/31/20 New Medications: RX: Ferrous Sulfate [Feosol] 325 mg PO M,W,F 60 Days #30 tablet Physician Discharge Instructions: You were found to have a resistant urinary tract infection. You are discharged with 1 week of IV antibiotics (Invanz) to complete treatment. Your hemoglobin was stable at ~8.0 during your hospitalization and no signs of bleeding were seen, even after restarting your blood thinner. Please follow up with your physicians as previously scheduled (PCP, GI). Continue with Iron supplementation every other day for iron deficiency anemia. Diet: Regular (GI soft diet) Activity: Ad indira Followup: NONE,NONE [Primary Care Provider] - Time spent managing pt's care (in minutes): 40
[2020-12-31 13:25] VITALS: BP 140/87; TEMP 97.8
== END 2020-12-31 14:53 | DRG 872 ==
LOC: ER 01:51 → ERHOLD 09:27 → 2ND 18:15
PROVIDERS: ADMIT Internal Medicine Nephrology; ATTEND Hospitalist
PROC: 02HV33Z Insertion of Infusion Device into Superior Vena Cava, Percutaneous Approach (ICD-10-PCS; principal; 2020-12-30)
DX: A41.9 Sepsis, unspecified organism (principal); Z68.41 Body mass index [BMI] 40.0-44.9, adult; G82.20 Paraplegia, unspecified; N30.00 Acute cystitis without hematuria; K92.2 Gastrointestinal hemorrhage, unspecified; K52.9 Noninfective gastroenteritis and colitis, unspecified; E66.9 Obesity, unspecified; E11.9 Type 2 diabetes mellitus without complications; I10 Essential (primary) hypertension; K21.9 Gastro-esophageal reflux disease without esophagitis; F17.200 Nicotine dependence, unspecified, uncomplicated; D50.9 Iron deficiency anemia, unspecified; G89.29 Other chronic pain; M54.9 Dorsalgia, unspecified; B96.89 Other specified bacterial agents as the cause of diseases classified elsewhere; Z88.8 Allergy status to other drugs, medicaments and biological substances; Z88.1 Allergy status to other antibiotic agents; Z91.013 Allergy to seafood; Z79.01 Long term (current) use of anticoagulants; Z79.890 Hormone replacement therapy; Z79.899 Other long term (current) drug therapy; Z86.14 Personal history of Methicillin resistant Staphylococcus aureus infection; Z86.718 Personal history of other venous thrombosis and embolism; Z90.49 Acquired absence of other specified parts of digestive tract; Z20.822 Contact with and (suspected) exposure to COVID-19
CPT/HCPCS: 36415; 36569; 71045; 74176; 80048; 80053; 80076; 81003; 81015; 81025; 83690; 83735; 84100; 84132; 85014; 85018; 85025; 86850; 86900; 86901; 87045; 87046; 87077; 87086; 87088; 87186; 87324; 87449; 89055; 94760; 96374; 96375; 99285; C9113; J0744; J1170; J2405; J2765; J3475; J7042